=== PATIENT | male | born 1960 | race Caucasian/White ===

== ENCOUNTER → 2016-12-07 | Outpatient (CLI) | payer OTHER | END | disposition home or self-care (01) | LOC: Rad HDHVI 15:06 | PROVIDERS: ATTEND Internal Medicine Cardiovascular Disease | DX: Z01.818 Encounter for other preprocedural examination (principal); R94.31 Abnormal electrocardiogram [ECG] [EKG] | CPT/HCPCS: 93306 ==

== ENCOUNTER → 2016-12-08 | Outpatient (CLI) | payer OTHER ==
[~2016-12-08] VITALS: Ht 172.7 cm; Wt 81.6 kg
== END | disposition home or self-care (01) ==
LOC: Rad HDHVI 07:58
PROVIDERS: ATTEND Internal Medicine Cardiovascular Disease
DX: R94.31 Abnormal electrocardiogram [ECG] [EKG] (principal)
CPT/HCPCS: 78452; 93017; 96374; A9500

== ENCOUNTER 2024-06-06 06:19 | Inpatient (IN) | payer BC ==
[2024-06-03 11:35] LABS: Urine Bacteria None Seen /hpf (None Seen)
[2024-06-03 11:40] LABS: Basophils # (auto) 0.1 10 ^3/uL (0-0.2); Eosinophils # (auto) 0.1 10 ^3/uL (0-0.8); Eosinophils % (auto) 2.2 % (0.0-7.0); Hematocrit 47.5 % (41.0-53.0); Hemoglobin 16.5 g/dL (13.5-17.5); Lymphocytes # (auto) 1.3 10 ^3/uL (0.4-5.4); Lymphocytes % (auto) 24.2 % (10.0-50.0); Mean Corpuscular Hemoglobin 29.4 pg (28.0-32.0); Mean Corpuscular Hgb Conc. 34.7 g/dL (32.0-36.0); Mean Corpuscular Volume 84.8 fL (80.0-100.0); Monocytes # (auto) 0.4 10 ^3/uL (0-1.3); Monocytes % (auto) 7.6 % (0.0-12.0); Neutrophils # (auto) 3.5 10 ^3/uL (1.6-8.6); Nucleated Red Blood Cells % 0.5 %; Platelet Count (auto) 190 10^3/uL (140-450); Red Cell Distribution Width 13.2 % (11.8-14.3); White Blood Cell 5.4 10^3/uL (4.4-10.8)
[2024-06-03 11:51] LABS: Urine Blood Negative /uL (Negative); Urine Clarity Clear (Clear); Urine Color Yellow (Yellow); Urine Hyaline Cast FEW /lpf (0 - 2); Urine Mucus FEW (None Seen); Urine Protein, UAD Negative (Negative); Urine Specific Gravity 1.022 (1.001-1.035); Urine Urobilinogen Normal (Negative); Urine WBC <1 /hpf (0 - 3); Urine pH 5.5 (5.0-9.0)
[2024-06-03 11:59] LABS: INR 1.03 (0.9-1.15); Partial Thromboplastin Time 25.1 SEC (24.5-34.5); Prothrombin Time 10.9 sec (9.3-11.8)
[2024-06-03 12:06] LABS: Alanine Aminotransferase 30 U/L (7-40); Albumin 4.6 g/dL (3.2-4.8); Alkaline Phosphatase 76 U/L (46-116); Anion Gap 9 (5-15); Aspartate Aminotransferase 23 U/L (13-40); Bilirubin, Total 0.8 mg/dL (0.2-1.0); Blood Urea Nitrogen 16 mg/dL (9-23); Calcium 10.2 mg/dL (8.7-10.4); Carbon Dioxide 26 mmol/L (20-31); Glucose 94 mg/dL (74-106); Potassium 4.3 mmol/L (3.5-5.1); Sodium 143 mmol/L (136-145); Total Protein 7.1 g/dL (5.7-8.2)
[2024-06-03 12:12] LABS: Chloride 108 mmol/L (98-107)
[~2024-06-06] VITALS: Ht 172.7 cm; Wt 84.6 kg
[~2024-06-06 06:19] MED LIST: ASPI1TAB20 PO; ATOR20TA PO; LEVO100T69 PO; SERT100T PO; SUMA50TA2 PO
[2024-06-06] MEDS: CIPROFLOXACIN 400MG/200ML 200 ML IV ONE (06:31)
[2024-06-06] MEDS: LIDOCAINE W/ EPINEPHRINE 1% 20ML VIAL ONE ×2 (06:33)
[2024-06-06] MEDS: TRANEXAMIC ACID 20 ML ONE (06:33)
[2024-06-06] MEDS: ceFAZolin 2 GM/D5W100ml 100 ML IV ONE (07:14)
[2024-06-06] MEDS ORDERED: fentaNYL CITRATE 100 MCG/2 ML VL ONE (07:16)
[2024-06-06] MEDS ORDERED: HYDROmorphone HCL 2 MG/ML VL/or syr ONE (07:16)
[2024-06-06] MEDS ORDERED: PROPOFOL 10 MG/ML 20 ML IV ONE (07:17)
[2024-06-06] MEDS ORDERED: MIDAZOLAM HCL 2MG/2ML 2ml VIAL (1mg/ml) ONE ×2 (07:17)
[2024-06-06] MEDS ORDERED: LIDOCAINE 1% INJ PF 5ML AMP ONE (07:24)
--- NOTE | 2024-06-06 08:16 | DVHHP2 ---
History Allergies: Coded Allergies: NO KNOWN ALLERGIES (Unverified , 12/08/16) Chief Complaint: Neck and shoulder pain Present Illness(Onset/Duration Neck and weak hands none contributory to case Exam Exam General Appearance: None, Normal HEENT: Normal ENT Inspection Neck: Normal Inspection, Other (ROM full) Respiratory: No Accessory Muscle Use Cardiovascular: Normal Peripheral Pulses Gastrointestinal: Other (No complaints) Genitalia: Deferred Pelvic: Deferred Rectal: Rectal Exam not done Extremities: Normal capillary refill Neurologic: Alert, Other (bilateral hand weakness) Cerebellar Function: Normal Plan Additional comments: Patient arrived for elective spine surgery with Dr. Farhan correia today cervical 3-5 anterior cervical diskectomy and fusion. The patient was informed of the risks and benefits of the procedure. These include but are not limited to complications of anesthesia, postoperative infection, incomplete relief of symptoms, recurrence of symptoms, damage to blood vessels, nerves and tendons, deep venous thrombosis, pulmonary embolism and possible need for repeat surgery in the future. The risks/benefits/alternatives of surgery including but not limited to pain, bleeding, infection, damage to surrounding soft tissue structures, need for reoperation or future surgery, persistent pain/disability/deformity, pseudoarthrotsis, bone graft collapse or extrusion of interbody device, instrumentation failure, need for instrumentation removal, dural tear, temporary or permanent nerve root damage, paralysis, stroke, deep vein thrombosis, pulmonary embolism, and any associated anesthetic risk (dry mouth, sore throat, dental damage, myocardial infarction, respiratory depression, blindness) were described to the patient in detail and the patient wishes to proceed. No guarantee of surgical outcome/improvement was implied. All of the questions were answered thoroughly and consents were obtained. We will obtain all the necessary preop tests in order for the patient to be cleared medically. Call with questions Barbara Groves [facility] Orthopaedic Spine Surgery nurse practitioner For Dr Cecily Ivy - for staff use only Patient was examined, chart reviewed, labs evaluated, and diagnostic studies and findings analyzed. Case was discussed with Dr. Farhan Ivy who formulated the plan of care. This medical document was created using an electronic medical record system with [employer] dictation system. Although this document has been carefully reviewed, there might still be some phonetic and typographical errors. These areas are purely typographical due to imperfections of the software programs, and do not reflect any compromise in the patient's medical care. SERENE GROVES NP Jun 06, 2024 08:16
[2024-06-06] MEDS ORDERED: fentaNYL CITRATE 100 MCG/2 ML VL IV PRN (09:30)
[2024-06-06] MEDS ORDERED: MORPHINE SULFATE 4 MG/ML SYR/VIAL IV PRN (09:30)
[2024-06-06] MEDS ORDERED: ePHEDrine SULFATE 50 MG/ML AMP IV PRN (09:30)
[2024-06-06] MEDS ORDERED: HYDROmorphone HCL 2 MG/ML VL/or syr IV PRN (09:30)
[2024-06-06] MEDS ORDERED: MIDAZOLAM HCL 2MG/2ML 2ml VIAL (1mg/ml) IV PRN (09:30)
[2024-06-06] MEDS ORDERED: hydrALAZINE HCL 20 MG/ML VL IV PRN (09:30)
[2024-06-06] MEDS ORDERED: SUGAMMADEX 200mg/2ml Vial (100MG/ML) IV ONE (11:16)
--- NOTE | 2024-06-06 11:17 | DVHOP2 ---
Operative Report - 2 Report Details Date: 06/06/24 Preop Diagnosis: cervical spinal stenosis Postop Diagnosis: 1. hard mass continuous with thyroid cartilage with an extension of the mass laterally about 3mm to the left side stratich to extend to the medial border of the left sternocleidomastoid muscle Surgeon: Farhan Ivy MD Mill Tender Warm Up: Verito Groves NP Anesthesiologist: Jerad Jones MD Anesthesia: General Consent: The patient was informed of the risks and benefits of the procedure. These include but are not limited to complications of anesthesia, postoperative infection, incomplete relief of symptoms, recurrence of symptoms, damage to blood vessels, nerves and tendons, deep venous thrombosis, pulmonary embolism and possible need for repeat surgery in the future. Name of Procedure Performed see detailed note Procedure Details Procedure Details: Operative Dictation: Pre op diagnosis: 1. cervical spinal stenosis Postop diagnosis 1. Hard Massextending from the thyroid cartilage laterlly to the left deep to the sternocleidomastoid laterally to the medial border of the let sternocleidomastoid Surgeon: Biju Assist: Allyssa Groves NP Smooth: gen fluids: see anes. note EBL: less than 25 cc Procedure note: The patient was seen in the Pre-anesthesia Care Unit and the site of the incision was initialed by me with a felt tipped marker. All questions by the patient were answered to the satisfaction of the patient and the chart was reviewed. The patient was taken to the operating room and placed supine on the [facility] Flat top table. General anesthesia was induced. Neuromonitoring leads were placed. A rolled towel was placed between the shoulder blades to hyperextend out the chest which will allow better exposure of the cervical sp ine. Halter traction to 10 pounds was placed. The arms were padded and adducted to the patient's side making sure all pulses in the hands were present. Tape traction was undertaken on the shoulders to give us better radiographic exposure of the distal cervical spine. A gel-pad was placed under the occiput and 5 degrees of extension was placed on the neck without adverse effects to the patient. The anterior neck was prepped and draped. Pre-operative antibiotics were given 30 minutes prior to the start of the procedure. A c-arm fluoroscope was used to александр out the incision site. At this time, a time out was taken per usual protocol. 15 blade incision made transversely from the midline to the left side to the lateral border of the sternocleidomastoid muscle through the skin to the platysma muscle. Metzenbaum scissors used to incise the platysma muscle longitudinally along the anterior border of the sternocleidomastoid muscle 3 cm distally and proximal until the deep cervical fascia was seen. blunt dissection of the deep cervical fascia brought immediate attention when I was using finger palpation to a sharp hard mass which I normally encounter because it feels lie a bone spur. However, it was very superficial and starting medially fro the location that one would normally see the thyroid cartilage. further digital palpation confirmed that the hard "exostosis" was continuous with the thyroid cartilage. Recent MRI cervical spine was open and reviewed prior to the case and once again when the hard lesion was encountered and there was no mention made of this mass. On C arm films, when we were checking position, the mass was radiolucent. this ruled out the mass being of bony origin. He has had a prior thyroid surgery and the expectation knowing this information is that this is a continuation of the issue that he had thyroid surgery for. The correct decision at this point is to stop the case and close the incision Copious irrigation with Irisept and then a 10 hungarian round wally drain and then 2-0 vicryl for the SQ closure and nicole for the skin and sterile dressing the patient was extubated without trouble. The patient will be admitted to hospital and I will confer the the radiology staff as to the correct imaging study that would be needed to make a diagnosis. Once the diagnostic tests ordered and completed, , I will plan to d/c home and f/u with ENT surgeon for definitive diagnosis and management. Condition Stable Disposition Still a Patient FARHAN IVY MD Jun 06, 2024 11:17
[2024-06-06 11:45] VITALS: PULSE 84; RESP 12; O2SAT 98
--- NOTE | 2024-06-06 12:07 | DVH ---
C-ARM FLUOROSCOPY: PROCEDURE: Cervical fusion Findings/ IMPRESSION: Please refer to surgical report for detailed findings.
--- NOTE | 2024-06-06 12:07 | DVH ---
C-ARM FLUOROSCOPY: PROCEDURE: Cervical fusion Findings/ IMPRESSION: Please refer to surgical report for detailed findings.
[2024-06-06] MEDS ORDERED: NITROGLYCERIN 0.4 MG SL TAB SL PRN ×2 (12:30→14:00)
[2024-06-06] MEDS ORDERED: MORPHINE SULFATE INJ 2 MG/ml SYRG IV PRN ×3 (12:30→14:00)
--- NOTE | 2024-06-06 12:58 | DVH ---
CT NECK WITHOUT CONTRAST Clinical History: hard mass L ant. neck continuous with thyroid cartilage Comparison: None Technique: Multiple contiguous CT images of the neck were obtained without intravenous contrast. The se images were reformatted degenerate coronal and sagittal reconstructions. Radiation Dose Information: CT Dose: CTDI volume is 25.1 mGy. Dose-length product is 708.36 mGy*cm Findings: Evaluation of the soft tissues of the neck is limited without intravenous contrast. There is a left neck drainage catheter with an anterior approach with the catheter tip in the left ne ck soft tissues at the level of the glottis adjacent to the posterior left thyroid cartilage. There i s soft tissue emphysema seen in the left neck. There is no discrete fluid collection identified. There is no evidence of a soft tissue neck mass or pathologically enlarged cervical lymph nodes. The re is a clip in the right neck just lateral to the right thyroid cartilage. The salivary and thyroid glands appear within normal limits. The aerodigestive tract grossly appears unremarkable. The glottis appears fairly symmetric. The visualized intracranial and intraorbital contents appear within normal limits. The visualized pa ranasal sinuses and mastoid air cells are also clear. There is posterior pleural thickening and mild scarring in the visualized lung apices. The osseous structures appear within normal limits. Impression: 1. There is a left neck drainage catheter with the tip in the left neck soft tissues just posterior t o the left thyroid cartilage. There is no discrete fluid collection identified. There is soft tissue emphysema seen in the left neck. 2. There is no evidence of a soft tissue neck mass or pathologically enlarged cervical lymph nodes. HS:Y
[2024-06-06] MEDS ORDERED: ONDANSETRON HCL 4 MG/2 ML VIAL IV PRN (14:00)
[2024-06-06] MEDS ORDERED: ACETAMINOPHEN 325 MG TAB PO PRN (14:00)
[2024-06-06 14:49] VITALS: BP 147/85; PULSE 95; RESP 19; TEMP 97.5; O2SAT 91
--- NOTE | 2024-06-06 15:31 | DVHINCON2 ---
Date Seen: Jun 06, [address] Ivy Family History: Cardiovascular disease G8 FATHER FH: kidney cancer G8 MOTHER Allergies: Coded Allergies: NO KNOWN ALLERGIES (Unverified , 12/08/16) Home Meds Reported Medications Sumatriptan Succinate (Imitrex) 50 Mg Tab, 50 MG PO, TAB 05/31/24 Aspirin (Aspir-81) 81 Mg Tab, 81 MG PO DAILY, TAB 05/31/24 Atorvastatin Calcium (Lipitor) 20 Mg Tab, 20 MG PO DAILY, TAB 05/31/24 Levothyroxine Sodium (Levoxyl) 100 Mcg Tab, 100 MCG PO DAILY, TAB 05/31/24 Sertraline Hcl (Zoloft) 100 Mg Tab, 100 MG PO QAM, TAB 05/31/24 Current Medications Current Medications Medications (Trade) Dose Ordered Sig/Severiano Route PRN Reason Start Time Stop Time Status Last Admin Hydralazine HCl (Apresoline Injection) 5 mg Q10M PRN IV SBP>160 06/06/24 09:30 06/06/24 10:21 DC Morphine Sulfate 2 mg Q2HPRN PRN IV BREAKTHROUGH PAIN (7-10) 06/06/24 09:30 06/06/24 09:31 DC Midazolam HCl (Versed Injection) 1 mg Q10M PRN IV ANXIETY 06/06/24 09:30 06/06/24 10:11 DC Ephedrine Sulfate (ePHEDrine SULFATE) 10 mg Q10M PRN IV SBP LESS THAN 90 06/06/24 09:30 06/06/24 10:11 DC Fentanyl Citrate 25 mcg Q1HP PRN IV BREAKTHROUGH PAIN (7-10) 06/06/24 09:30 06/06/24 09:31 DC Hydromorphone HCl (Dilaudid Injection) 0.5 mg Q10M PRN IV SEVERE PAIN (7-10 PAIN SCALE) 06/06/24 09:30 06/06/24 10:11 DC Nitroglycerin (Ntrostat Sublingual) 0.4 mg Q5MINP PRN SL FOR CHEST PAIN 06/06/24 12:30 06/06/24 14:05 DC Morphine Sulfate 2 mg Q30M PRN IV FOR CHEST PAIN 06/06/24 12:30 06/06/24 14:05 DC Dextrose/Sodium Chloride 1,000 ml @ 100 mls/hr Q10H IV 06/06/24 14:00 Ondansetron HCl (Zofran) 4 mg Q4HP PRN IV NAUSEA / VOMITING 06/06/24 14:00 Acetaminophen (Tylenol Tablet) 650 mg Q6HP PRN PO MILD PAIN (1-3 PAIN SCALE) 06/06/24 14:00 Acetaminophen/ Hydrocodone Bitart (Barker 10/325MG Tab) 1 tab Q6HP PRN PO MODERATE PAIN (4-6 PAIN SCALE) 06/06/24 14:00 Morphine Sulfate 1 mg Q4HP PRN IV SEVERE PAIN (7-10 PAIN SCALE) 06/06/24 14:00 Cyclobenzaprine HCl (Flexeril Tablet) 10 mg TID PO 06/06/24 14:00 Docusate Sodium (Colace Capsule) 100 mg BID PO 06/06/24 22:00 Cefazolin Sodium 50 ml @ 100 mls/hr Q8HR IV 06/06/24 14:00 06/08/24 06:29 Nitroglycerin (Ntrostat Sublingual) 0.4 mg Q5MINP PRN SL FOR CHEST PAIN 06/06/24 14:00 Morphine Sulfate 2 mg Q30M PRN IV FOR CHEST PAIN 06/06/24 14:00 Vital Signs Vital Signs Date Time Temp Pulse Resp B/P (MAP) Pulse Ox O2 Delivery O2 Flow Rate FiO2 06/06/24 14:49 97.5 95 19 147/85 (105) 91 97.5 06/06/24 14:49 Room Air* 0 21 Labs/Diagnostic Data Labs Test 06/03/24 11:30 Range/Units White Blood Count 5.4 4.4-10.8 10^3/uL Red Blood Count 5.60 4.5-5.90 10^6/uL Hemoglobin 16.5 13.5-17.5 g/dL Hematocrit 47.5 41.0-53.0 % Mean Corpuscular Volume 84.8 80.0-100.0 fL Mean Corpuscular Hemoglobin 29.4 28.0-32.0 pg Mean Corpuscular Hemoglobin Concent 34.7 32.0-36.0 g/dL Red Cell Distribution Width 13.2 11.8-14.3 % Platelet Count 190 140-450 10^3/uL Mean Platelet Volume 7.7 6.9-10.8 fL Neutrophils (%) (Auto) 65.0 37.0-80.0 % Lymphocytes (%) (Auto) 24.2 10.0-50.0 % Monocytes (%) (Auto) 7.6 0.0-12.0 % Eosinophils (%) (Auto) 2.2 0.0-7.0 % Basophils (%) (Auto) 1.0 0.0-2.0 % Neutrophils # (Auto) 3.5 1.6-8.6 10 ^3/uL Lymphocytes # (Auto) 1.3 0.4-5.4 10 ^3/uL Monocytes # (Auto) 0.4 0-1.3 10 ^3/uL Eosinophils # (Auto) 0.1 0-0.8 10 ^3/uL Basophils # (Auto) 0.1 0-0.2 10 ^3/uL Nucleated Red Blood Cells 0.5 % Prothrombin Time 10.9 9.3-11.8 sec Prothrombin Time INR 1.03 0.9-1.15 Activated Partial Thromboplast Time 25.1 24.5-34.5 SEC Urine Color Yellow Yellow Urine Clarity Clear Clear Urine pH 5.5 5.0-9.0 Urine Specific [place] 1.022 1.001-1.035 Urine Protein Negative Negative Urine Ketones Negative Negative Urine Blood Negative Negative /uL Urine Nitrite Negative Negative Urine Bilirubin Negative Negative Urine Urobilinogen Normal Negative mg/dL Urine Leukocyte Esterase Negative Negative /uL Urine RBC 1 0 - 3 /hpf Urine WBC <1 0 - 3 /hpf Urine Squamous Epithelial Cells None seen <5 /hpf Urine Bacteria None seen None Seen /hpf Urine Hyaline Casts Few 0 - 2 /lpf Urine Mucus Few None Seen Urine Glucose Normal Normal mg/dL Sodium Level 143 136-145 mmol/L Potassium Level 4.3 3.5-5.1 mmol/L Chloride Level 108 H 98-107 mmol/L Carbon Dioxide Level 26 20-31 mmol/L Anion Gap 9 5-15 Blood Urea Nitrogen 16 9-23 mg/dL Creatinine 1.33 H 0.700-1.30 mg/dL Glomerular Filtration Rate Calc 60 >90 mL/min BUN/Creatinine Ratio 12.0 10.0-20.0 Serum Glucose 94 74-106 mg/dL Calcium Level 10.2 8.7-10.4 mg/dL Total Bilirubin 0.8 0.2-1.0 mg/dL Aspartate Amino Transferase (AST) 23 13-40 U/L Alanine Aminotransferase (ALT) 30 7-40 U/L Alkaline Phosphatase 76 46-116 U/L Total Protein 7.1 5.7-8.2 g/dL Albumin 4.6 3.2-4.8 g/dL Assessment see dictated note Plan discussed with: Patient Date of Service: Jun 06, 2024 Billing Provider: KASSIDY TURK MD Common Visit Codes: [id number] INP/OBS CARE (HIGH) KASSIDY TURK MD Jun 06, 2024 15:31
[2024-06-06] MEDS: ceFAZolin 1GM/50ML 50 ML IV SCH (16:15)
[2024-06-06] MEDS: CYCLOBENZAPRINE HCL 10 MG TAB PO SCH (16:15)
[2024-06-06] MEDS: D5W/SOD CHLO 0.9% 1,000 ML IV SCH (16:16)
[2024-06-06 17:06] VITALS: BP 159/96; PULSE 88; RESP 20; TEMP 97.5; O2SAT 93
--- NOTE | 2024-06-06 17:18 | DVHINCON2 ---
DATE OF CONSULTATION: 06/06/2024 INTERNAL MEDICINE CONSULT HISTORY OF PRESENT ILLNESS: The patient is a 63-year-old gentleman who was admitted to undergo cervical spine surgery for cervical spinal stenosis, but during the surgery was found to have a hard mass continuous with the thyroid cartilage and the surgery was abandoned. The patient at this time denies any significant pain. No chest pain, no shortness of breath. No nausea or vomiting. REVIEW OF SYSTEMS: Review of rest of systems are otherwise currently negative. PAST MEDICAL HISTORY: Significant for hypothyroidism, hypertension, depression, and hyperlipidemia. MEDICATIONS: Include levothyroxine, Zoloft, Lipitor, and Imitrex. ALLERGIES: No known drug allergies. SOCIAL HISTORY: Lives at home with his . Denies smoking or alcohol. FAMILY HISTORY: Negative. PHYSICAL EXAMINATION: GENERAL: The patient is awake, alert. VITAL SIGNS: Temperature of 97.5, pulse 95 per minute, blood pressure 147/85. SHEENT: Unremarkable. NECK: There is no JVD. No pedal edema. Does have a dressing in the left neck with a drain in place. LUNGS: Equal bilaterally. No added sounds. CARDIOVASCULAR: S1, S2 is regular, no murmurs. ABDOMEN: Soft. There is no organomegaly. NEUROLOGIC: Nonfocal. MUSCULOSKELETAL: Normal. ASSESSMENT AND PLAN: * Hypothyroidism. A TSH will be checked. * Questionable hypertension for which blood pressure will be monitored. * Hyperlipidemia. * Depression. * Status post neck surgery for which she will be placed on pain medications and antibiotics. MD CHRIS Sam/SAMANTHA TID: [id number] RECEIPT: [id number]
[2024-06-06] MEDS: ONDANSETRON HCL 4 MG/2 ML VIAL IV ONE (18:57)
[2024-06-06 20:00] VITALS: RESP 18; O2SAT 98
[2024-06-06] MEDS: ATORVASTATIN 20 MG TAB PO SCH (20:57)
[2024-06-06] MEDS: DOCUSATE SOD 100 MG CAP PO SCH (20:57)
[2024-06-06] MEDS: HYDROcodone-ACET 10/325MG TAB PO PRN (20:58)
[2024-06-06 21:32] VITALS: BP 138/92; PULSE 92; RESP 18; TEMP 98.5; O2SAT 98
[2024-06-07] VITALS (7 sets, daily range): BP systolic 120–141; BP diastolic 75–95; PULSE 84–96; RESP 18–20; TEMP 97.6–99.2; O2SAT 90–100
[2024-06-07] MEDS: LEVOTHYROXINE SODIUM 100 MCG TAB PO SCH (05:35)
[2024-06-07 07:18] LABS: Basophils # (auto) 0 10 ^3/uL (0-0.2); Eosinophils # (auto) 0 10 ^3/uL (0-0.8); Hematocrit 41.2 % (41.0-53.0); Hemoglobin 14.2 g/dL (13.5-17.5); Mean Corpuscular Hemoglobin 29.3 pg (28.0-32.0); Mean Corpuscular Hgb Conc. 34.5 g/dL (32.0-36.0); Mean Corpuscular Volume 84.7 fL (80.0-100.0); Monocytes # (auto) 0.9 10 ^3/uL (0-1.3); Monocytes % (auto) 8.2 % (0.0-12.0); Neutrophils # (auto) 9.2 10 ^3/uL (1.6-8.6); Neutrophils % (auto) 82.8 % (37.0-80.0); Platelet Count (auto) 191 10^3/uL (140-450); Red Blood Cells 4.86 10^6/uL (4.5-5.90); Red Cell Distribution Width 13.1 % (11.8-14.3); White Blood Cell 11.1 10^3/uL (4.4-10.8)
[2024-06-07 07:24] LABS: Potassium 4.2 mmol/L (3.5-5.1); Sodium 142 mmol/L (136-145)
[2024-06-07 07:25] LABS: Anion Gap 6 (5-15); Calcium 9.1 mg/dL (8.7-10.4); Carbon Dioxide 27 mmol/L (20-31)
[2024-06-07 07:28] LABS: Chloride 109 mmol/L (98-107)
[2024-06-07 07:30] LABS: BUN/Creatinine Ratio 13.1 (10.0-20.0); Blood Urea Nitrogen 16 mg/dL (9-23)
[2024-06-07 07:32] LABS: Glucose 115 mg/dL (74-106)
[2024-06-07] MEDS: SERTRALINE HCL 50 MG TAB PO SCH (08:54)
[2024-06-08 00:57] VITALS: BP 144/83; PULSE 88; RESP 16; TEMP 98.5; O2SAT 96
[2024-06-08 04:52] VITALS: BP 170/94; PULSE 91; RESP 16; TEMP 98.7; O2SAT 95
[2024-06-08 09:00] VITALS: BP 158/109; PULSE 83; RESP 17; TEMP 98.4; O2SAT 97
--- NOTE | 2024-06-08 10:52 | DVHDS2 ---
Discharge Summary Date of Admission Jun 06, 2024 at 12:16 Date of Discharge: Jun 08, 2024 Labs/Diagnostic Data: Laboratory Results Test 06/07/24 06:25 06/03/24 11:30 White Blood Count 11.1 10^3/uL (4.4-10.8) Red Blood Count 4.86 10^6/uL (4.5-5.90) Hemoglobin 14.2 g/dL (13.5-17.5) Hematocrit 41.2 % (41.0-53.0) Mean Corpuscular Volume 84.7 fL (80.0-100.0) Mean Corpuscular Hemoglobin 29.3 pg (28.0-32.0) Mean Corpuscular Hemoglobin Concent 34.5 g/dL (32.0-36.0) Red Cell Distribution Width 13.1 % (11.8-14.3) Platelet Count 191 10^3/uL (140-450) Mean Platelet Volume 8.2 fL (6.9-10.8) Neutrophils (%) (Auto) 82.8 % (37.0-80.0) Lymphocytes (%) (Auto) 9.0 % (10.0-50.0) Monocytes (%) (Auto) 8.2 % (0.0-12.0) Eosinophils (%) (Auto) 0.0 % (0.0-7.0) Basophils (%) (Auto) 0.0 % (0.0-2.0) Neutrophils # (Auto) 9.2 10 ^3/uL (1.6-8.6) Lymphocytes # (Auto) 1.0 10 ^3/uL (0.4-5.4) Monocytes # (Auto) 0.9 10 ^3/uL (0-1.3) Eosinophils # (Auto) 0 10 ^3/uL (0-0.8) Basophils # (Auto) 0 10 ^3/uL (0-0.2) Nucleated Red Blood Cells 0.0 % Sodium Level 142 mmol/L (136-145) Potassium Level 4.2 mmol/L (3.5-5.1) Chloride Level 109 mmol/L (98-107) Carbon Dioxide Level 27 mmol/L (20-31) Anion Gap 6 (5-15) Blood Urea Nitrogen 16 mg/dL (9-23) Creatinine 1.22 mg/dL (0.700-1.30) Glomerular Filtration Rate Calc 66 mL/min (>90) BUN/Creatinine Ratio 13.1 (10.0-20.0) Serum Glucose 115 mg/dL (74-106) Calcium Level 9.1 mg/dL (8.7-10.4) Thyroid Stimulating Hormone (TSH) 1.20 uIU/mL (0.55-4.78) Prothrombin Time 10.9 sec (9.3-11.8) Prothrombin Time INR 1.03 (0.9-1.15) Activated Partial Thromboplast Time 25.1 SEC (24.5-34.5) Urine Color Yellow (Yellow) Urine Clarity Clear (Clear) Urine pH 5.5 (5.0-9.0) Urine Specific [place] 1.022 (1.001-1.035) Urine Protein Negative (Negative) Urine Ketones Negative (Negative) Urine Blood Negative /uL (Negative) Urine Nitrite Negative (Negative) Urine Bilirubin Negative (Negative) Urine Urobilinogen Normal mg/dL (Negative) Urine Leukocyte Esterase Negative /uL (Negative) Urine RBC 1 /hpf (0 - 3) Urine WBC <1 /hpf (0 - 3) Urine Squamous Epithelial Cells None seen /hpf (<5) Urine Bacteria None seen /hpf (None Seen) Urine Hyaline Casts Few /lpf (0 - 2) Urine Mucus Few (None Seen) Urine Glucose Normal mg/dL (Normal) Total Bilirubin 0.8 mg/dL (0.2-1.0) Aspartate Amino Transferase (AST) 23 U/L (13-40) Alanine Aminotransferase (ALT) 30 U/L (7-40) Alkaline Phosphatase 76 U/L (46-116) Total Protein 7.1 g/dL (5.7-8.2) Albumin 4.6 g/dL (3.2-4.8) Other Laboratory Tests 06/07/24 06:25 Brief Hx & Hospital Course: pt. admitted after surgery to get CT of the neck and medical monitoring. Once stable, plans made to d/c home Operations or Procedures see detailed note Condition at Discharge: Good Final Diagnosis/Problems List 1. hard mass continuous with thyroid cartilage with an extension of themass laterally about 3mm to the left side stratich to extend to themedial border of the left sternocleidomastoid muscle Discharge Disposition: Home Discharge Instruct/Medications Diet: Regular Activity: No Restrictions, As Tolerated Follow Up/Referral: dr. cheney in 2 weeks Medications: sent through office emr Discharge Statement: "Patient was advised to return to the ER or call 911 if any headaches, dizziness, shortness of breath, chest pain, abdominal pain, bleeding, fevers, or worsening of medical condition. Patient was counseled about treatment plan, medications, possible side effects, patientverbalized understanding. All questions were answered to the best of my ability. This discharge took greater then 30 minutes in planning, reviewing documentation, counseling the patient, and discussing with other team members." ASSESSMENT ASSESSMENT Assessment 1. hard mass continuous with thyroid cartilage with an extension of themass laterally about 3mm to the left side stratich to extend to themedial border of the left sternocleidomastoid muscle ANGELO CHENEY MD Jun 08, 2024 10:52
[2024-06-08 11:11] VITALS: BP 158/109; PULSE 83; RESP 17; TEMP 98.4; O2SAT 97
[2024-06-08] MEDS: hydrALAZINE HCL 20 MG/ML VL IV PRN (12:28)
[2024-06-08 13:00] VITALS: BP 164/105; PULSE 95; RESP 18; TEMP 98.2; O2SAT 97
== END 2024-06-08 13:54 | disposition home or self-care (01) | DRG 502 ==
LOC: SUR 06:19 → OVERFLOW 12:16 → WEST WING 14:18
PROVIDERS: ADMIT Orthopaedic Surgery; ATTEND Internal Medicine
PROC: 0KJX0ZZ Inspection of Upper Muscle, Open Approach (ICD-10-PCS; principal; 2024-06-06 08:41)
DX: M48.02 Spinal stenosis, cervical region (principal); E03.9 Hypothyroidism, unspecified; E78.5 Hyperlipidemia, unspecified; F32.A Depression, unspecified; I10 Essential (primary) hypertension; Z82.49 Family history of ischemic heart disease and other diseases of the circulatory system; Z80.51 Family history of malignant neoplasm of kidney
CPT/HCPCS: 36415; 70490; 72040; 76000; 80048; 80053; 81001; 84443; 85025; 85610; 85730; 86850; 86900; 86901; 87086; 97163; G0378; J2250; J2405; J2704; J7042

== ENCOUNTER 2024-12-31 06:15 | Inpatient (IN) | payer OTHER, BC ==
[2024-12-30 10:11] LABS: Hematocrit 47.0 % (41.0-53.0); Hemoglobin 16.7 g/dL (13.5-17.5); Mean Corpuscular Hemoglobin 29.6 pg (28.0-32.0); Mean Corpuscular Volume 83.3 fL (80.0-100.0); Nucleated Red Blood Cells % 0.3 %
[2024-12-30 10:23] LABS: INR 0.97 (0.9-1.15); Partial Thromboplastin Time 25.6 SEC (24.5-34.5); Prothrombin Time 10.3 sec (9.3-11.8)
[2024-12-30 10:27] LABS: Alanine Aminotransferase 36 U/L (7-40); Albumin 4.8 g/dL (3.2-4.8); Alkaline Phosphatase 64 U/L (46-116); Anion Gap 8 (5-15); BUN/Creatinine Ratio 13.6 (10.0-20.0); Blood Urea Nitrogen 18 mg/dL (9-23); Calcium 10.1 mg/dL (8.7-10.4); Carbon Dioxide 26 mmol/L (20-31); Glucose 89 mg/dL (74-106); Potassium 4.2 mmol/L (3.5-5.1); Sodium 142 mmol/L (136-145); Total Protein 7.2 g/dL (5.7-8.2)
[2024-12-30 10:28] LABS: Bilirubin, Total 0.8 mg/dL (0.2-1.0)
[2024-12-30 10:33] LABS: Chloride 108 mmol/L (98-107)
[2024-12-30 10:42] LABS: Urine Protein, UAD Negative (Negative)
[2024-12-31] VITALS (9 sets, daily range): BP systolic 145–170; BP diastolic 90–100; PULSE 58–93; RESP 11–17; TEMP 97.9–98.6; O2SAT 94–98
[~2024-12-31] VITALS: Ht 172.7 cm; Wt 83.0 kg
[~2024-12-31 06:15] MED LIST changes: +ASCO500T11 PO; -ATOR20TA PO; +CHOL25CH3 PO; +CYAN1TAB14 PO; +ECHI1CAP PO; +NIFE1TAB31 PO; -SERT100T PO
[2024-12-31] MEDS: ceFAZolin 2 GM/D5W50ml 50 ML IV ONE (06:23)
[2024-12-31] MEDS: TRANEXAMIC ACID 20 ML ONE (06:35)
[2024-12-31] MEDS ORDERED: fentaNYL CITRATE 5 ML ONE (07:35)
[2024-12-31] MEDS ORDERED: fentaNYL CITRATE 100 MCG/2 ML VL ONE (07:35)
[2024-12-31] MEDS ORDERED: KETAMINE 50mg/ML 1ml syringe ONE (07:35)
[2024-12-31] MEDS ORDERED: HYDROmorphone HCL 2 MG/ML VL/or syr ONE (07:35)
[2024-12-31] MEDS ORDERED: MIDAZOLAM HCL 2MG/2ML 2ml VIAL (1mg/ml) ONE (07:35)
--- NOTE | 2024-12-31 07:35 | DVHHP2 ---
History Allergies: Coded Allergies: NO KNOWN ALLERGIES (Unverified , 12/08/16) Chief Complaint: Cervical stenosis, patient is here for elective spine surgery with Dr Farhan Ivy cervical three through five anterior cervical diskectomy and fusion. Patient has been experiencing classic cervical his symptoms and also difficulty with ambulation due to initial instability upon standing, patient's left upper and lower extremities are effective were then his right. 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 Left Hand numbness is also frequently experienced The risks/benefits/alternatives of surgery were explained to the patient in detail including but not limited to , stroke, paralysis, myocardial infarction, bleeding, infection, complications of anesthesia (dry mouth, sore throat, dental damage, respiratory depression, blindness), postoperative infection, incomplete relief of symptoms, recurrence of symptoms, damage to blood vessels, nerves and tendons, pulmonary embolism and possible need for repeat surgery in the future. Pain, damage to surrounding soft tissue structures, need for reoperation or future surgery, persistent pain/disability/deformity, bone graft collapse or extrusion of interbody device, instrumentation failure, need for instrumentation removal, dural tear, temporary or permanent nerve root damage, deep vein thrombosis, pulmonary embolism, were described to the patient in detail and the patient wishes to proceed. No guarantee of surgical outcome/improvement was implied. All of the questions were answered thoroughly and consents were obtained. Call with questions Barbara Groves [facility] Orthopaedic Spine Surgery nurse practitioner For Dr Cecily Ivy Patient was examined, chart reviewed, labs evaluated, and diagnostic studies and findings analyzed. Case was discussed with Dr. Farhan Ivy who formulated the plan of care. This medical document was created using an electronic medical record system with [employer] dictation system. Although this document has been carefully reviewed, there might still be some phonetic and typographical errors. These areas are purely typographical due to imperfections of the software programs, and do not reflect any compromise in the patient's medical care. Present Illness(Onset/Duration Patient has been having effects of cervical radiculopathies since about 2019, patient did have the same surgery scheduled in May of 2025 however it was aborted due to intraoperative findings. Patient has been cleared for surgery. Noncontributory to this case Past Surgical History: Other (Bilateral shoulder rotator cuff surgery prior neck surgery both anterior and posterior approaches) Exam Exam General Appearance: None, Obese HEENT: Normal ENT Inspection, Other (Speech is clear concise not hoarse) Neck: Full Range of Motion, None, Normal Inspection, Other (Bilateral lateral neck pain shoulder pain bilaterally) Respiratory: No Accessory Muscle Use, None, No Respiratory Distress Cardiovascular: No Edema, No JVD, Other (Skin is pink warm and dry no complaints of chest pain) Gastrointestinal: Other (No complaints of nausea vomiting or diarrhea) Extremities: Normal capillary refill, Normal inspection, Normal range of motion Neurologic: Alert, 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
[2024-12-31] MEDS ORDERED: GLYCOPYRROLATE 0.2 MG/ML 1ML VIAL ONE (07:36)
[2024-12-31] MEDS ORDERED: ROCURONIUM 10MG/ML 10ML VIAL IV ONE (07:36)
[2024-12-31] MEDS ORDERED: HYDROCORTISONE SOD SUCC 100 MG/2ML INJ VIAL ONE (07:36)
[2024-12-31] MEDS ORDERED: ONDANSETRON HCL 4 MG/2 ML VIAL ONE (07:36)
[2024-12-31] MEDS ORDERED: PROPOFOL 10 MG/ML 20 ML IV ONE ×2 (07:36→10:25)
[2024-12-31] MEDS ORDERED: KETOROLAC TROMETH 30 MG/ML 1ML VIAL ONE (07:36)
[2024-12-31] MEDS ORDERED: PHENYLEPHRINE HCL 10 MG/ML VL ONE (07:36)
[2024-12-31] MEDS ORDERED: LIDOCAINE 2%HCL (LOCAL ANESTH.) INJ 20ML MDV ONE (07:36)
--- NOTE | 2024-12-31 07:37 | POSTOP ---
Post-Operative Note Post-Operative Note Preop Diagnosis Cervical stenosis Postop Diagnosis: 1. Cervical Degenerative Disk Disease and Spinal Stenosis Causing incapacitating neck pain, radiculopathy and progressive neurologic deficit Operation performed Procedure: Cervical 3 to 4 anterior cervical discectomy with Cervical 3-4 foraminotomies and facetectomies to decompression the spinal canal and Cervical 4 nerve roots Cervical 4 to 5 anterior cervical discectomy with Cervical 4-5 foraminotomies and facetectomies to decompression the spinal canal and Cervical 5 nerve roots Specimen None Anesthesia: General Anesthesiologist: Dr. 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 morphine 1mg q 4 hours (PAIN 7-10) - P.O. analgesics:Tylenol 650MG (PAIN 1-3) [place] 10/325 mg (PAIN 4-6) - Muscle relaxers scheduled administration. This is a beneficial medications for the incisional pain as it is mostly related to muscle spasms. Flexeril 10 mg TID - Cepacol throat lozenges as needed for sore throat -Antibiotics Operative recommendations: -Postoperative dose:-Post operative antibiotics cefazolin 1 g IV piggyback every 8 hours x 48 hours total of 6 doses -DVT PPX: -Hold all chemical DVT/ blood thinners for 14 days postoperatively -use mechanical DVT PPX such as SCD's, ambulation -Activity: -Pending PT evaluation and patients progression -Sit at side of bed for meals -Goal: Ambulate independently and safely (may use assistive devices if needed) -Medical Therapy goals: -Afebrile- Patient may develop a expected post operative fever by day 2-3, this may not be accompanied with a elevation in WBC. if fever develops: Acetaminophen for fever. Albuterol nebulizer Tx every 12 hours for 24 hours to facilitate adequate lung expansion and prevent development of atelectasis. -Euglycemic: bloods sugars under 130mmol/L for optimal healing -Normotensive: Avoid events of hypertension. This helps to keep post operative healing intact and avoids destabilization of beneficial hemostatic coagulation. Drains -Bulb drains: record output and characteristics of the drainage EVERY 6 HOURS- if there is no output indicate this by documenting 0ml output in note.. These will be to thumbprint compression unless otherwise ordered. Record output as well as amount in a note at least every 6 houtrs- more if indicated. Wound drainage is described by type, color, amount, and odor. Drainage can be 1 serous: Clear and thin, may be present in healing healthy wound. 2 serosanguineous containing blood may also be present and healthy healing wound 3. Sanguinous primarily blood 4. Purulent this is thick, white, and pus like. It may be indicated to give of a infection and should constitute a call to the provider immediately with the plan that the sample should be cultured. -Negrete: -DC in OR -Dressings -Anterior cervical patients: Initial surgical dressing may be reinforced if needed. If there is excessive bleeding, leaking, drainage in the bulb drain notify provider -Bowel management: -Colace 100mg bid -Diet: -Clear liquid diet and advance as patient tolerates within dietary limitations ( example: diabetic, Cardiac) -Incentive Spirometer: -10 x hour while awake, RN please educate and observe repeat demonstration, have IS at bedside POD #1 -X-rays: - none indicated at this time -Consults: -Physical Therapy evaluation, treatment recommendations, and discharge recommendations Call with questions Barbara Ann ACNP- Orthopaedic Spine Surgery nurse practitioner For Dr Cecily Ivy Patient was examined, chart reviewed, labs evaluated, and diagnostic studies and findings analyzed. Case was discussed with Dr. Farhan Ivy who formulated the plan of care. This medical document was created using an electronic medical record system with [employer] system. Although this document has been carefully reviewed, there might still be some phonetic and typographical errors. These areas are purely typographical due to imperfections of the software programs, and do not reflect any compromise in the patient's medical care. Date 12/31/24 Time 07:35 VERITO ANN NP 15, 2025 07:37
[2024-12-31] MEDS ORDERED: SUGAMMADEX 200mg/2ml Vial (100MG/ML) IV ONE (11:43)
[2024-12-31] MEDS: D5W/SOD CHLO 0.9% 1,000 ML IV SCH (12:00)
[2024-12-31] MEDS ORDERED: MORPHINE SULFATE INJ 2 MG/ml SYRG IV PRN (12:00)
[2024-12-31] MEDS ORDERED: NITROGLYCERIN 0.4 MG SL TAB SL PRN (12:00)
--- NOTE | 2024-12-31 12:04 | DVHOP2 ---
Operative Report - 2 Report Details Date: 12/31/24 Preop Diagnosis: cervical spinal stenosis with severe radiculopathy Postop Diagnosis: same as pre op Surgeon: Farhan Ivy MD Machine Quilt Stuffer: Verito Groves NP Anesthesiologist: nicole Anesthesia: General Consent: The patient was informed of the risks and benefits of the procedure. These include but are not limited to complications of anesthesia, postoperative infection, incomplete relief of symptoms, recurrence of symptoms, damage to blood vessels, nerves and tendons, deep venous thrombosis, pulmonary embolism and possible need for repeat surgery in the future. Name of Procedure Performed see detailed note Procedure Details Procedure Details: Pre Op Diagnosis: Cervical Degenerative Disk Disease and Severe Spinal Stenosis Causing incapacitating neck pain, radiculopathy and progressive neurologic deficit Post Op Diagnosis: 1. Cervical Degenerative Disk Disease and Spinal Stenosis Causing incapacitating neck pain, radiculopathy and progressive neurologic deficit Procedure: Cervical 3 to 4 anterior cervical discectomy with Cervical 3-4 foraminotomies and facetectomies to decompression the spinal canal and Cervical 4 nerve roots Cervical 4 to 5 anterior cervical discectomy with Cervical 4-5 foraminotomies and facetectomies to decompression the spinal canal and Cervical 5 nerve roots Cervical 3-5 anterior cervical Fusion Cervical 3-5 anterior cervical instrumentation with freestanding cages Cervical 3-4 placement of allograft prosthetic device Cervical 4-5 placement of allograft prosthetic device Microscope for micro dissection Surgeon: Farhan Ivy MD Anesthesia: General Assist: Verito Groves NP Fluids and EBL: see anesthesia note Procedure Note: The patient was seen in the Pre-anesthesia Care Unit and the site of the incision was initialed by me with a felt tipped marker. All questions by the patient were answered to the satisfaction of the patient and the chart was reviewed. The patient was taken to the operating room and placed supine on the [facility] top table. General anesthesia was induced. Neuromonitoring leads were placed. A rolled towel was placed between the shoulder blades to hyperextend out the chest which will allow better exposure of the cervical spine. Halter traction to 10 pounds was placed. The arms were padded and adducted to the patients side making sure all pulses in the hands were present. Tape traction was undertaken on the shoulders to give us better radiographic exposure of the distal cervical spine. A gel-pad was placed under the occiput and 5 degrees of extension was placed on the neck without adverse effects to the patient. The anterior neck was prepped and draped. Pre-operative antibiotics were given 30 minutes prior to the start of the procedure. A c-arm fluoroscope was used to александр out the incision site. At this time, a time out was taken per usual protocol. The patient had a previous anterior transverse left sded incision in the neck and to avoid some of the scarring, I chose a longitudinal incision on the left side at the anterior border of the sternocleidomastoid muscle from the C3 to C5 level. Next an incision was made through the skin with a 15 blade scalpel through the subcutaneous tissue down to the platysma. Self-retainers were placed. The platysma was incised along the longitudinal border with a Metzenbaum scissors. Blunt dissection was made through the deep cervical and pre-tracheal fascia taking care to protect the carotid sheath laterally and the Trachea/esophagus medially. The dissection was carried down to the prevertebral fascia. Any crossing vessels were ligated using a vascular clip or coagulated with a bovie. An esophageal retractor was next used to retract the trachea/esophagus and a bent [address] through the anterior annulus of the cervical disk and a lateral C-arm fluoroscopic image was taken to confirm that we were at the correct level. Next, bovie electrocautery was used to expose the bones of cervical 3,4,5, and bipolar electrocuatery was used to lift up the Longus colli and capitus muscles. Black-Belt Self Retainers were used to retract the longus colli and capitus muscles bilaterally as well as the trachea/esophagus to the right and the carotid sheath to the left. Smooth thin Black-Belt retractors were placed proximally and distally and a needle was placed again in the anterior annulus of the disk and an image taken to confirm the correct level. At this point, the microscope was wheeled in and an 11 blade scalpel incised the anterior annulus of the cervical 3/4 and 4/5 disks. Next, straight and curved curettes removed the remainder of the disks all the way down to the posterior longitudinal ligament. Carefully, a Augustine number one rongeur incised the posterior longitudinal ligament at the lateral end of the above disks and using a micro, blunt tip nerve hook to separate the posterior longitudinal ligament from the dura, alternating 1 mm and 2 mm Kerison rongeurs removed the posterior longitudinal ligament. Next, Kerison 1mm and 2 mm rongeurs were alternated to get under the uncinate processes and undercut them to perform foraminotomies and factectomies at the cervical 3/4 and 4/5 levels to decompress the central canal and cervical 4,5 nerve roots. Next the microscope was wheeled away and the c-arm fluoroscope was wheeled into the field and a lateral image was obtained. Increasing size graft trials were used starting at a 5 mm thick size until the proper tension in the disk space and height latter day obtained. We then placed final free standing cages at C3/4 and 4/5. Satisfactory placement was confirmed in the AP and lateral views using a C-arm fluoroscope. Copious irrigation of the wound with sterile saline and all bleeding was controlled before closure initiated. At this point, a 10 Macedonian round [address] Drain was place deep to the Platysma muscle and the Platysma was approximated with one interrupted 0-Vicryl suture. The subcutaneous tissue was closed with interrupted 2-0 vicryl sutures and the skin was closed with nicole. Sterile dressings were placed and a cervical collar placed, the patient extubated, transferred to the stretcher and taken to the Recovery Room in unremarkable condition. Other Notes: [id number] Condition Stable Disposition Still a Patient FARHAN IVY MD Dec 31, 2024 12:04
[2024-12-31] MEDS: ACETAMINOPHEN IV 1000 MG/100ML (10MG/ML) IV ONE (12:20)
[2024-12-31] MEDS: ACETAMINOPHEN IV 100 ML IV ONE (12:20)
[2024-12-31] MEDS ORDERED: HYDROmorphone HCL 2 MG/ML VL/or syr IV PRN (12:30)
[2024-12-31] MEDS: ONDANSETRON HCL 4 MG/2 ML VIAL IV ONE (12:30)
[2024-12-31 13:05] LABS: Urine Amorphous Crystal FEW /hpf (None Seen); Urine Protein, UAD TRACE (Negative)
--- NOTE | 2024-12-31 14:52 | DVHINCON2 ---
Date Seen: Dec 31, [address] MIDDLETON Family History: Cardiovascular disease G8 FATHER FH: kidney cancer G8 MOTHER Allergies: Coded Allergies: NO KNOWN ALLERGIES (Unverified , 12/08/16) Home Meds Reported Medications Echinacea Purpurea Aerial (Echinacea) 650 Mg Cap, 650 MG PO DAILY, CAP 12/25/24 Cholecalciferol (D3) 25 Mcg Chw, 25 MCG PO DAILY, TAB.CHEW 12/25/24 Ascorbic Acid (VITAMIN C TABLET) 500 Mg Tb, 1 TAB PO DAILY, #30 TAB 12/25/24 Cyanocobalamin (B12) 1,000 Mcg Tab, 1000 MCG PO DAILY, TAB 12/25/24 Nifedipine (Nifedipine Er) 30 Mg Tab, 1 TAB PO DAILY, #90 TAB 3 Refills 12/25/24 Sumatriptan Succinate (Imitrex) 50 Mg Tab, 50 MG PO, TAB 05/31/24 Aspirin (Aspir-81) 81 Mg Tab, 81 MG PO DAILY, TAB 05/31/24 Levothyroxine Sodium (Levoxyl) 100 Mcg Tab, 100 MCG PO DAILY, TAB 05/31/24 Current Medications Current Medications Medications (Trade) Dose Ordered Sig/Severiano Route PRN Reason Start Time Stop Time Status Last Admin Dextrose/Sodium Chloride 1,000 ml @ 100 mls/hr Q10H IV 12/31/24 12:00 Ondansetron HCl (Zofran) 4 mg Q4HP PRN IV NAUSEA / VOMITING 12/31/24 12:00 Acetaminophen (Tylenol Tablet) 650 mg Q6HP PRN PO MILD PAIN (1-3 PAIN SCALE) 12/31/24 12:00 Acetaminophen/ Hydrocodone Bitart ([employer] 10/325MG Tab) 1 tab Q6HP PRN PO MODERATE PAIN (4-6 PAIN SCALE) 12/31/24 12:00 Morphine Sulfate 1 mg Q4HP PRN IV SEVERE PAIN (7-10 PAIN SCALE) 12/31/24 12:00 Cyclobenzaprine HCl (Flexeril Tablet) 10 mg TID PO 12/31/24 14:00 Docusate Sodium (Colace Capsule) 100 mg BID PO 12/31/24 22:00 Cefazolin Sodium 50 ml @ 100 mls/hr Q8HR IV 12/31/24 14:00 Nitroglycerin (Ntrostat Sublingual) 0.4 mg Q5MINP PRN SL FOR CHEST PAIN 12/31/24 12:00 Morphine Sulfate 2 mg Q30M PRN IV FOR CHEST PAIN 12/31/24 12:00 Ascorbic Acid (Vitamin C Tablet) 500 mg DAILY PO 01/01/25 10:00 Aspirin (Ecotrin Enteric Coated Tablet) 81 mg DAILY PO 01/01/25 10:00 Levothyroxine Sodium (Synthroid Tablet) 100 mcg DAILY PO 01/01/25 10:00 Nifedipine (Procardia Xl (Time-Release)) 30 mg DAILY PO 01/01/25 10:00 Hydromorphone HCl (Dilaudid Injection) 0.5 mg Q10M PRN IV SEVERE PAIN (7-10 PAIN SCALE) 12/31/24 12:30 12/31/24 13:11 DC Vital Signs Vital Signs Date Time Temp Pulse Resp B/P (MAP) Pulse Ox O2 Delivery O2 Flow Rate FiO2 12/31/24 13:33 88 14 122/81 (95) 93 12/31/24 12:12 Mask 9.0 98 12/31/24 12:12 97.0 97.0 Labs/Diagnostic Data Labs Test 12/31/24 12:00 12/30/24 09:45 Range/Units Urine Color Colorless Yellow Urine Clarity Turbid H Clear Urine pH 5.5 5.0-9.0 Urine Specific [place] 1.015 1.001-1.035 Urine Protein Trace H Negative Urine Ketones Negative Negative Urine Blood 3+ H Negative /uL Urine Nitrite Negative Negative Urine Bilirubin Negative Negative Urine Urobilinogen Normal Negative mg/dL Urine Leukocyte Esterase Negative Negative /uL Urine RBC 159 0 - 3 /hpf Urine Microscopic WBC 11 H 0-3 /HPF Urine Squamous Epithelial Cells None seen <5 /hpf Urine Amorphous Crystals Few None Seen /hpf Urine Bacteria Few H None Seen /hpf Urine Hyaline Casts Few 0 - 2 /lpf Urine Glucose Normal Normal mg/dL White Blood Count 4.6 4.4-10.8 10^3/uL Red Blood Count 5.63 4.5-5.90 10^6/uL Hemoglobin 16.7 13.5-17.5 g/dL Hematocrit 47.0 41.0-53.0 % Mean Corpuscular Volume 83.3 80.0-100.0 fL Mean Corpuscular Hemoglobin 29.6 28.0-32.0 pg Mean Corpuscular Hemoglobin Concent 35.5 32.0-36.0 g/dL Red Cell Distribution Width 13.3 11.8-14.3 % Platelet Count 235 140-450 10^3/uL Mean Platelet Volume 8.1 6.9-10.8 fL Neutrophils (%) (Auto) 50.7 37.0-80.0 % Lymphocytes (%) (Auto) 37.3 10.0-50.0 % Monocytes (%) (Auto) 8.4 0.0-12.0 % Eosinophils (%) (Auto) 2.4 0.0-7.0 % Basophils (%) (Auto) 1.2 0.0-2.0 % Neutrophils # (Auto) 2.3 1.6-8.6 10 ^3/uL Lymphocytes # (Auto) 1.7 0.4-5.4 10 ^3/uL Monocytes # (Auto) 0.4 0-1.3 10 ^3/uL Eosinophils # (Auto) 0.1 0-0.8 10 ^3/uL Basophils # (Auto) 0.1 0-0.2 10 ^3/uL Nucleated Red Blood Cells 0.3 % Prothrombin Time 10.3 9.3-11.8 sec Prothrombin Time INR 0.97 0.9-1.15 Activated Partial Thromboplast Time 25.6 24.5-34.5 SEC Urine Mucus Few None Seen Sodium Level 142 136-145 mmol/L Potassium Level 4.2 3.5-5.1 mmol/L Chloride Level 108 H 98-107 mmol/L Carbon Dioxide Level 26 20-31 mmol/L Anion Gap 8 5-15 Blood Urea Nitrogen 18 9-23 mg/dL Creatinine 1.32 H 0.700-1.30 mg/dL Glomerular Filtration Rate Calc 60 >90 mL/min BUN/Creatinine Ratio 13.6 10.0-20.0 Serum Glucose 89 74-106 mg/dL Calcium Level 10.1 8.7-10.4 mg/dL Total Bilirubin 0.8 0.2-1.0 mg/dL Aspartate Amino Transferase (AST) 27 13-40 U/L Alanine Aminotransferase (ALT) 36 7-40 U/L Alkaline Phosphatase 64 46-116 U/L Total Protein 7.2 5.7-8.2 g/dL Albumin 4.8 3.2-4.8 g/dL Assessment SEE DICTATED NOTE Plan discussed with: Patient Date of Service: Dec 31, 2024 Billing Provider: KASSIDY TURK MD Common Visit Codes: [id number] INP/OBS CARE (HIGH) KASSIDY TURK MD Dec 31, 2024 14:52
--- NOTE | 2024-12-31 15:08 | DVHINCON2 ---
DATE OF CONSULTATION: 12/31/2024 INTERNAL MEDICINE CONSULT HISTORY OF PRESENT ILLNESS: The patient is a 64-year-old gentleman who was admitted after he underwent surgery for the cervical spine for cervical spinal stenosis. The patient has no significant pain at this time. No chest pain, no shortness of breath, no nausea or vomiting. REVIEW OF SYSTEMS: Review of rest of systems is otherwise currently negative. PAST MEDICAL HISTORY: Significant for hypothyroidism and hypertension. MEDICATIONS: He takes nifedipine, levothyroxine, and vitamin B12. ALLERGIES: No known drug allergies. SOCIAL HISTORY: No history of smoking or alcohol. FAMILY HISTORY: Negative. PHYSICAL EXAMINATION: GENERAL: The patient is awake and alert. VITAL SIGNS: Temperature of 97, pulse of 91 per minute, blood pressure 122/81. SHEENT: Unremarkable. NECK: There is no JVD, no pedal edema. LUNGS: Equal bilaterally. There are no added sounds. CARDIOVASCULAR: S1 and S2 is regular. No murmurs. ABDOMEN: Soft. There is no organomegaly. NEUROLOGIC: Nonfocal. MUSCULOSKELETAL: There is a dressing at the site of the left neck surgery with a drain in place. ASSESSMENT AND PLAN: * Hypertension for which the patient will continue on nifedipine. * Hypothyroidism. He will continue on levothyroxine and a TSH will be obtained. * Status post cervical spine surgery for cervical spinal stenosis. The patient will be placed on pain medication and receive physical therapy and will be followed up by Dr. Ivy. MD CHRIS Sam/PATRICIA TID: [id number] RECEIPT: [id number] [facility]
[2024-12-31] MEDS: CYCLOBENZAPRINE HCL 10 MG TAB PO SCH (16:47)
[2024-12-31] MEDS: ceFAZolin 1GM/50ML 50 ML IV SCH (16:47)
[2024-12-31] MEDS: HYDROcodone-ACET 10/325MG TAB PO PRN (17:15)
[2024-12-31] MEDS ORDERED: SERT-160 PO (18:22)
[2024-12-31] MEDS: DOCUSATE SOD 100 MG CAP PO SCH (21:41)
[2025-01-01] VITALS (9 sets, daily range): BP systolic 110–171; BP diastolic 76–108; PULSE 98–118; RESP 17–20; TEMP 97.8–99.4; O2SAT 92–97
[2025-01-01] MEDS: hydrALAZINE HCL 20 MG/ML VL IV ONE (05:12)
[2025-01-01 07:32] LABS: Hematocrit 40.7 % (41.0-53.0); Hemoglobin 14.4 g/dL (13.5-17.5); Mean Corpuscular Hemoglobin 30.0 pg (28.0-32.0); Mean Corpuscular Volume 84.6 fL (80.0-100.0); Nucleated Red Blood Cells % 0.0 %
[2025-01-01 07:41] LABS: Alanine Aminotransferase 24 U/L (7-40); Albumin 4.3 g/dL (3.2-4.8); Alkaline Phosphatase 56 U/L (46-116); Anion Gap 11 (5-15); BUN/Creatinine Ratio 10.2 (10.0-20.0); Blood Urea Nitrogen 12 mg/dL (9-23); Calcium 9.3 mg/dL (8.7-10.4); Carbon Dioxide 25 mmol/L (20-31); Chloride 102 mmol/L (98-107); Potassium 3.9 mmol/L (3.5-5.1); Sodium 138 mmol/L (136-145); Total Protein 6.3 g/dL (5.7-8.2)
[2025-01-01 07:42] LABS: Bilirubin, Total 0.8 mg/dL (0.2-1.0)
[2025-01-01 07:43] LABS: Glucose 106 mg/dL (74-106)
[2025-01-01] MEDS: ASCORBIC ACID 500 MG TAB PO SCH (10:10)
[2025-01-01] MEDS: ASPirin-EC 81 mg tab PO SCH (10:10)
[2025-01-01] MEDS: LEVOTHYROXINE SODIUM 100 MCG TAB PO SCH (10:10)
[2025-01-01] MEDS: MORPHINE SULFATE INJ 2 MG/ml SYRG IV PRN (10:28)
--- NOTE | 2025-01-01 10:52 | DVHPN2 ---
Progress Note Date Seen: Jan 01, 2025 Medical Necessity Reason Pt with a Central, PICC or Fol: No Subjective Patient reports: No new complaints Review of Systems: HEENT:Normal, CVS:Normal, RESPIRATORY:Normal, GI:Normal, :Normal, MSK:Normal, NEURO:Normal Objective vital signs Vital Sign Date Time Temp Pulse Resp B/P (MAP) Pulse Ox O2 Delivery O2 Flow Rate FiO2 01/01/25 10:28 99 18 173/92 01/01/25 09:00 98.8 95 98.8 01/01/25 07:50 Nasal Cannula* 2 28 Total Intake and Output 12/31/24 12/31/24 01/01/25 15:00 23:00 07:00 Intake Total 110 ml 100 ml Output Total 350 ml Balance -350 ml 110 ml 100 ml medications Current Medications Medications Dose Ordered Sig/Severiano Route Start Time Stop Time Status Last Admin Dose Admin Dextrose/Sodium Chloride 1,000 ml @ 100 mls/hr Q10H IV 12/31/24 12:00 12/31/24 21:47 100 MLS/HR Ondansetron HCl 4 mg Q4HP PRN IV 12/31/24 12:00 Acetaminophen 650 mg Q6HP PRN PO 12/31/24 12:00 Acetaminophen/ Hydrocodone Bitart 1 tab Q6HP PRN PO 12/31/24 12:00 01/01/25 05:15 1 TAB Morphine Sulfate 1 mg Q4HP PRN IV 12/31/24 12:00 01/01/25 10:28 1 MG Cyclobenzaprine HCl 10 mg TID PO 12/31/24 14:00 01/01/25 05:12 10 MG Docusate Sodium 100 mg BID PO 12/31/24 22:00 01/01/25 10:09 100 MG Cefazolin Sodium 50 ml @ 100 mls/hr Q8HR IV 12/31/24 14:00 01/01/25 05:12 100 MLS/HR Nitroglycerin 0.4 mg Q5MINP PRN SL 12/31/24 12:00 Morphine Sulfate 2 mg Q30M PRN IV 12/31/24 12:00 Ascorbic Acid 500 mg DAILY PO 01/01/25 10:00 01/01/25 10:10 500 MG Aspirin 81 mg DAILY PO 01/01/25 10:00 01/01/25 10:10 81 MG Levothyroxine Sodium 100 mcg DAILY PO 01/01/25 10:00 01/01/25 10:10 100 MCG Nifedipine 30 mg DAILY PO 01/01/25 10:00 01/01/25 10:10 30 MG Examination: GENERAL:Normal, HEENT:Normal, NECK:Normal, LUNGS:Normal, CVS:Normal, ABDOMEN:Normal, MSK:Normal, MSK:Abnormal (left neck dressing), SKIN:Normal, NEURO:Normal, :Normal laboratory and microbiology Laboratory Tests 01/01/25 05:10 Test 01/01/25 05:10 Range/Units Serum Glucose 106 74-106 mg/dL Problem List/Assessment/Plan Problem List/Assessment/Plan * Hypertension for which the patient will continue on nifedipine. * Hypothyroidism. He will continue on levothyroxine and a TSH will be obtained. * Status post cervical spine surgery for cervical spinal stenosis. The patient will be placed on pain medication and receive physical therapy and will be followed up by Dr. Whiteside. advance care planning- full code- time spent 18 mins Plan discussed with: Patient My Orders My Orders Orders - KASSIDY TURK MD Procedure Category Date Status Time D5w-0.9%Ns 1000 Ml PHA 01/01/25 Verified 11:00 Hydralazine Injection PHA 01/01/25 Verified (Apresoline Inject 11:00 Basic Metabolic Panel LAB 01/02/25 Verified 06:00 Complete Blood Count LAB 01/02/25 Verified 06:00 Guaifenesin Plain PHA 01/01/25 Verified Liquid (Robitussin Charisse 11:00 2 Gm Sodium Diet DIET 01/01/25 Verified Lunch Date of Service: Jan 01, 2025 Billing Provider: KASSIDY TURK MD Common Visit Codes: [id number] INP/OBS CARE(HIGH) Secondary Visit Codes: [id number] CARE PLAN 30 MINUTES KASSIDY TURK MD Jan 01, 2025 10:52
[2025-01-01] MEDS: D5W/SOD CHLO 0.9% 1,000 ML IV SCH (11:16)
[2025-01-01] MEDS: hydrALAZINE HCL 20 MG/ML VL IV PRN (11:17)
--- NOTE | 2025-01-01 11:34 | DVH ---
FLUOROSCOPY TIME: 73.4 TECHNIQUE: Intraoperative radiographs of the cervical spine were obtained. COMPARISON: XY C ARM FLUOROSCOPY UP TO 60MIN on DOS: 06/06/24 FINDINGS: Refer to intraoperative report for further evaluation. IMPRESSION: Refer to intraoperative report for further evaluation.
--- NOTE | 2025-01-01 12:06 | DVHINCON2 ---
Date of service: Jan 01, 2025 Referring Physician Hospitalist Reason for Consultation Urinary retention History of Present Illness Postoperatively, patient unable to void. Bladder scan showed >550 ml. Negrete catheter inserted last evening. Patient denies prior history of urinary retention. Past Medical History Cervical spinal stenosis Radiculopathy Past Surgical History Surgeries for cervical stenosis 06/06/24 and 12/31/24. Family History: Cardiovascular disease G8 FATHER FH: kidney cancer G8 MOTHER Allergies: Coded Allergies: NO KNOWN ALLERGIES (Unverified , 12/08/16) Home Meds Reported Medications Sertraline Hcl (Sertraline Hcl) 100 Mg Tab, 1 TAB PO DAILY, #90 TAB 1 Refill 12/31/24 Echinacea Purpurea Aerial (Echinacea) 650 Mg Cap, 650 MG PO DAILY, CAP 12/25/24 Cholecalciferol (D3) 25 Mcg Chw, 25 MCG PO DAILY, TAB.CHEW 12/25/24 Ascorbic Acid (VITAMIN C TABLET) 500 Mg Tb, 1 TAB PO DAILY, #30 TAB 12/25/24 Cyanocobalamin (B12) 1,000 Mcg Tab, 1000 MCG PO DAILY, TAB 12/25/24 Nifedipine (Nifedipine Er) 30 Mg Tab, 1 TAB PO DAILY, #90 TAB 3 Refills 12/25/24 Sumatriptan Succinate (Imitrex) 50 Mg Tab, 50 MG PO, TAB 05/31/24 Aspirin (Aspir-81) 81 Mg Tab, 81 MG PO DAILY, TAB 05/31/24 Levothyroxine Sodium (Levoxyl) 100 Mcg Tab, 100 MCG PO DAILY, TAB 05/31/24 Current Medications Current Medications Medications (Trade) Dose Ordered Sig/Severiano Route PRN Reason Start Time Stop Time Status Last Admin Cyclobenzaprine HCl (Flexeril Tablet) 10 mg TID PO 12/31/24 14:00 01/01/25 05:12 Docusate Sodium (Colace Capsule) 100 mg BID PO 12/31/24 22:00 01/01/25 10:09 Cefazolin Sodium 50 ml @ 100 mls/hr Q8HR IV 12/31/24 14:00 01/01/25 05:12 Ascorbic Acid (Vitamin C Tablet) 500 mg DAILY PO 01/01/25 10:00 01/01/25 10:10 Aspirin (Ecotrin Enteric Coated Tablet) 81 mg DAILY PO 01/01/25 10:00 01/01/25 10:10 Levothyroxine Sodium (Synthroid Tablet) 100 mcg DAILY PO 01/01/25 10:00 01/01/25 11:03 DC 01/01/25 10:10 Nifedipine (Procardia Xl (Time-Release)) 30 mg DAILY PO 01/01/25 10:00 01/01/25 10:10 Hydromorphone HCl (Dilaudid Injection) 0.5 mg Q10M PRN IV SEVERE PAIN (7-10 PAIN SCALE) 12/31/24 12:30 12/31/24 13:11 DC Dextrose/Sodium Chloride 1,000 ml @ 60 mls/hr [id number] IV 01/01/25 11:00 01/01/25 11:16 Hydralazine HCl (Apresoline Injection) 10 mg Q6HP PRN IV SBP>150 01/01/25 11:00 01/01/25 11:17 Guaifenesin (Robitussin Plain Liquid) 200 mg Q4HP PRN PO FOR COUGH 01/01/25 11:00 Levothyroxine Sodium (Synthroid Tablet) 100 mcg QAM PO 01/02/25 07:00 Vital Signs Vital Signs Date Time Temp Pulse Resp B/P (MAP) Pulse Ox O2 Delivery O2 Flow Rate FiO2 01/01/25 11:17 173/92 01/01/25 10:28 99 18 01/01/25 09:00 98.8 95 98.8 01/01/25 07:50 Nasal Cannula* 2 28 Physical Exam Negrete in place Labs/Diagnostic Data Labs Test 01/01/25 05:10 12/31/24 12:00 12/30/24 09:45 Range/Units White Blood Count 10.9 #H 4.4-10.8 10^3/uL Red Blood Count 4.81 4.5-5.90 10^6/uL Hemoglobin 14.4 13.5-17.5 g/dL Hematocrit 40.7 #L 41.0-53.0 % Mean Corpuscular Volume 84.6 80.0-100.0 fL Mean Corpuscular Hemoglobin 30.0 28.0-32.0 pg Mean Corpuscular Hemoglobin Concent 35.5 32.0-36.0 g/dL Red Cell Distribution Width 13.1 11.8-14.3 % Platelet Count 198 140-450 10^3/uL Mean Platelet Volume 8.4 6.9-10.8 fL Neutrophils (%) (Auto) 82.9 H 37.0-80.0 % Lymphocytes (%) (Auto) 9.1 L 10.0-50.0 % Monocytes (%) (Auto) 7.9 0.0-12.0 % Eosinophils (%) (Auto) 0.0 0.0-7.0 % Basophils (%) (Auto) 0.1 0.0-2.0 % Neutrophils # (Auto) 9.0 H 1.6-8.6 10 ^3/uL Lymphocytes # (Auto) 1.0 0.4-5.4 10 ^3/uL Monocytes # (Auto) 0.9 0-1.3 10 ^3/uL Eosinophils # (Auto) 0 0-0.8 10 ^3/uL Basophils # (Auto) 0 0-0.2 10 ^3/uL Nucleated Red Blood Cells 0.0 % Sodium Level 138 136-145 mmol/L Potassium Level 3.9 3.5-5.1 mmol/L Chloride Level 102 98-107 mmol/L Carbon Dioxide Level 25 20-31 mmol/L Anion Gap 11 5-15 Blood Urea Nitrogen 12 9-23 mg/dL Creatinine 1.18 0.700-1.30 mg/dL Glomerular Filtration Rate Calc 68 >90 mL/min BUN/Creatinine Ratio 10.2 10.0-20.0 Serum Glucose 106 74-106 mg/dL Calcium Level 9.3 8.7-10.4 mg/dL Total Bilirubin 0.8 0.2-1.0 mg/dL Aspartate Amino Transferase (AST) 29 13-40 U/L Alanine Aminotransferase (ALT) 24 7-40 U/L Alkaline Phosphatase 56 46-116 U/L Total Protein 6.3 5.7-8.2 g/dL Albumin 4.3 3.2-4.8 g/dL Thyroid Stimulating Hormone (TSH) 1.80 0.55-4.78 uIU/mL Urine Color Colorless Yellow Urine Clarity Turbid H Clear Urine pH 5.5 5.0-9.0 Urine Specific Cedar 1.015 1.001-1.035 Urine Protein Trace H Negative Urine Ketones Negative Negative Urine Blood 3+ H Negative /uL Urine Nitrite Negative Negative Urine Bilirubin Negative Negative Urine Urobilinogen Normal Negative mg/dL Urine Leukocyte Esterase Negative Negative /uL Urine RBC 159 0 - 3 /hpf Urine Microscopic WBC 11 H 0-3 /HPF Urine Squamous Epithelial Cells None seen <5 /hpf Urine Amorphous Crystals Few None Seen /hpf Urine Bacteria Few H None Seen /hpf Urine Hyaline Casts Few 0 - 2 /lpf Urine Glucose Normal Normal mg/dL Prothrombin Time 10.3 9.3-11.8 sec Prothrombin Time INR 0.97 0.9-1.15 Activated Partial Thromboplast Time 25.6 24.5-34.5 SEC Urine Mucus Few None Seen Microbiology Date/Time Source Procedure Growth Status 12/31/24 12:00 Urine - Negrete Port Urine Culture - Preliminary Resulted Assessment Urinary retention BPH Plan/Recommendation Negrete to gravity Urine culture negtative Cystoscopy/UDS TBA PSA Start Flomax and Finasteride Plan discussed with: Patient, Other MELLY YOUNG MD Jan 01, 2025 12:05
[2025-01-01] MEDS: ONDANSETRON HCL 4 MG/2 ML VIAL IV PRN (13:32)
--- NOTE | 2025-01-01 16:09 | DVHPN2 ---
Progress Note - Surgical Date Seen: Jan 01, 2025 Post op day Post op day: 1 Subjective Patient reports: No new complaints, Feels better Review of Systems: HEENT:Normal, CVS:Normal, RESPIRATORY:Normal, GI:Normal, :Normal, MSK:Normal, NEURO:Abnormal (LBP) Objective Vital signs Vital Sign Date Time Temp Pulse Resp B/P (MAP) Pulse Ox O2 Delivery O2 Flow Rate FiO2 01/01/25 13:00 98.5 107 20 170/108 (128) 93 98.5 01/01/25 07:50 Nasal Cannula* 2 28 Total Intake and Output 12/31/24 12/31/24 01/01/25 15:00 23:00 07:00 Intake Total 110 ml 100 ml Output Total 350 ml Balance -350 ml 110 ml 100 ml Medications Current Medications Medications Dose Ordered Sig/Severiano Route Start Time Stop Time Status Last Admin Dose Admin Ondansetron HCl 4 mg Q4HP PRN IV 12/31/24 12:00 01/01/25 13:32 4 MG Acetaminophen 650 mg Q6HP PRN PO 12/31/24 12:00 Acetaminophen/ Hydrocodone Bitart 1 tab Q6HP PRN PO 12/31/24 12:00 01/01/25 05:15 1 TAB Morphine Sulfate 1 mg Q4HP PRN IV 12/31/24 12:00 01/01/25 10:28 1 MG Cyclobenzaprine HCl 10 mg TID PO 12/31/24 14:00 01/01/25 13:32 10 MG Docusate Sodium 100 mg BID PO 12/31/24 22:00 01/01/25 10:09 100 MG Cefazolin Sodium 50 ml @ 100 mls/hr Q8HR IV 12/31/24 14:00 01/01/25 13:32 100 MLS/HR Nitroglycerin 0.4 mg Q5MINP PRN SL 12/31/24 12:00 Morphine Sulfate 2 mg Q30M PRN IV 12/31/24 12:00 Ascorbic Acid 500 mg DAILY PO 01/01/25 10:00 01/01/25 10:10 500 MG Aspirin 81 mg DAILY PO 01/01/25 10:00 01/01/25 10:10 81 MG Nifedipine 30 mg DAILY PO 01/01/25 10:00 01/01/25 10:10 30 MG Dextrose/Sodium Chloride 1,000 ml @ 60 mls/hr [id number] IV 01/01/25 11:00 01/01/25 11:16 60 MLS/HR Hydralazine HCl 10 mg Q6HP PRN IV 01/01/25 11:00 01/01/25 11:17 10 MG Guaifenesin 200 mg Q4HP PRN PO 01/01/25 11:00 Levothyroxine Sodium 100 mcg QAM PO 01/02/25 07:00 Laboratory Laboratory Tests 01/01/25 05:10 Test 01/01/25 05:10 Range/Units Serum Glucose 106 74-106 mg/dL Microbiology Date/Time Source Procedure Growth Status 12/31/24 12:00 Urine - Burrell Port Urine Culture - Preliminary Resulted Examination: GENERAL:Normal, HEENT:Normal, NECK:Normal, LUNGS:Normal, CVS:Normal, ABDOMEN:Normal, MSK:Normal, SKIN:Normal (LEFT ANTERIOR SURGICAL SITE WELL APPROXIMATED WITH MILLIE, DRAIN INTACT.), NEURO:Normal (IMPROVMENT IN PREOP SYMPTOMS), :Abnormal (needed burrell put in for urinary retention) Problem List/Assessment/Plan Problems: (1) Acute post-operative pain (2) Muscle spasms of neck Assessment and Plan Postoperative day 1. Patient had difficulty with urinary retention last night bladder scan greater than 550 mL and Burrell catheter was placed urology consult was also placed Call from night staff nurse Lida on regarding dressings being saturated. Patient was seen last night at 2040 hours in the new dressing was applied with the rfp writer this paper Drain discontinued patient tolerated well sore throat, good ROM, recommended ice chips, Cepacol lozenges. plan to DC 01/02 just started tolerating solid foods Disposition: -Pending DX: Cervical Degenerative Disk Disease and Spinal Stenosis Causing incapacitating neck pain, radiculopathy and progressive neurologic deficit -Discharge RX: -Follow up appointment: with Dr Ivy on scheduled appointment in two weeks postoperatively [id number] [facility] [address] Abbott [address] [place] [id number] -Pain: - IV pain meds post op day 1, with PO supplementation, goal is to progress weaning off IV medications and control pain with PO only. morphine 1mg q 4 hours (PAIN 7-10) - P.O. analgesics:Tylenol 650MG (PAIN 1-3) [place] 10/325 mg (PAIN 4-6) - Muscle relaxers scheduled administration. This is a beneficial medications for the incisional pain as it is mostly related to muscle spasms. Flexeril 10 mg TID - Cepacol throat lozenges as needed for sore throat -Antibiotics Operative recommendations: -Postoperative dose:-Post operative antibiotics cefazolin 1 g IV piggyback every 8 hours x 48 hours total of 6 doses -DVT PPX: -Hold all chemical DVT/ blood thinners for 14 days postoperatively -use mechanical DVT PPX such as SCD's, ambulation -Activity: -Pending PT evaluation and patients progression -Sit at side of bed for meals -Goal: Ambulate independently and safely (may use assistive devices if needed) -Medical Therapy goals: -Afebrile- Patient may develop a expected post operative fever by day 2-3, this may not be accompanied with a elevation in WBC. if fever develops: Acetaminophen for fever. Albuterol nebulizer Tx every 12 hours for 24 hours to facilitate adequate lung expansion and prevent development of atelectasis. -Euglycemic: bloods sugars under 130mmol/L for optimal healing -Normotensive: Avoid events of hypertension. This helps to keep post operative healing intact and avoids destabilization of beneficial hemostatic coagulation. Drains -Bulb drains: record output and characteristics of the drainage EVERY 6 HOURS- if there is no output indicate this by documenting 0ml output in note.. These will be to thumbprint compression unless otherwise ordered. Record output as well as amount in a note at least every 6 houtrs- more if indicated. Wound drainage is described by type, color, amount, and odor. Drainage can be 1 serous: Clear and thin, may be present in healing healthy wound. 2 serosanguineous containing blood may also be present and healthy healing wound 3. Sanguinous primarily blood 4. Purulent this is thick, white, and pus like. It may be indicated to give of a infection and should constitute a call to the provider immediately with the plan that the sample should be cultured. -Dressings -Anterior cervical patients: Initial surgical dressing may be reinforced if needed. If there is excessive bleeding, leaking, drainage in the bulb drain notify provider -Bowel management: -Colace 100mg bid -Diet: -Clear liquid diet and advance as patient tolerates within dietary limitations ( example: diabetic, Cardiac) -Incentive Spirometer: -10 x hour while awake, RN please educate and observe repeat demonstration, have IS at bedside POD #1 -X-rays: - none indicated at this time -Consults: -Physical Therapy evaluation, treatment recommendations, and discharge recommendations Call with questions Barbara Ann ACNP- Orthopaedic Spine Surgery nurse practitioner For Dr Cecily Ivy Patient was examined, chart reviewed, labs evaluated, and diagnostic studies and findings analyzed. Case was discussed with Dr. Farhan Ivy who formulated the plan of care. This medical document was created using an electronic medical record system with S[employer]iel dictation system. Although this document has been carefully reviewed, there might still be some phonetic and typographical errors. These areas are purely typographical due to imperfections of the software programs, and do not reflect any compromise in the patient's medical care. Plan discussed with Plan discussed with: Patient, Other (Lida X [id number]) Visit Coding Surgery Date of Service if different f: Dec 31, 2024 Billing Provider: SERENE ANN NP Surgery Visit Codes: NOT BILLABLE SERENE ANN NP Jan 01, 2025 16:09
[2025-01-01] MEDS: THROAT LOZENGES(CEPASTAT) MT PRN (22:20)
[2025-01-02] VITALS (8 sets, daily range): BP systolic 127–149; BP diastolic 78–93; PULSE 89–104; RESP 17–20; TEMP 88–100.4; O2SAT 93–98
[2025-01-02] MEDS: LEVOTHYROXINE SODIUM 100 MCG TAB PO SCH (05:45)
[2025-01-02 07:19] LABS: Hematocrit 44.5 % (41.0-53.0); Hemoglobin 15.5 g/dL (13.5-17.5); Mean Corpuscular Hemoglobin 29.6 pg (28.0-32.0); Mean Corpuscular Volume 84.8 fL (80.0-100.0); Nucleated Red Blood Cells % 0.1 %
[2025-01-02 07:23] LABS: Calcium 10.0 mg/dL (8.7-10.4); Chloride 106 mmol/L (98-107); Potassium 4.2 mmol/L (3.5-5.1); Sodium 141 mmol/L (136-145)
[2025-01-02 07:24] LABS: Anion Gap 11 (5-15); Carbon Dioxide 24 mmol/L (20-31)
[2025-01-02 07:29] LABS: BUN/Creatinine Ratio 10.2 (10.0-20.0); Blood Urea Nitrogen 13 mg/dL (9-23)
[2025-01-02 07:35] LABS: Glucose 141 mg/dL (74-106)
[2025-01-02 08:07] LABS: Prostate Specific Antigen 3.0 ng/mL (0.0-4.0)
[2025-01-02] MEDS: ACETAMINOPHEN 325 MG TAB PO PRN (09:26)
--- NOTE | 2025-01-02 10:02 | DVHPN2 ---
Progress Note Date Seen: Jan 02, 2025 Medical Necessity Reason Pt with a Central, PICC or Fol: Yes The following are medically ne: Burrell Catheter Reason for burrell catheter: Strict I&O Subjective Patient reports: No new complaints Review of Systems: HEENT:Normal, CVS:Normal, RESPIRATORY:Normal, GI:Normal, :Normal, MSK:Normal, NEURO:Normal Objective vital signs Vital Sign Date Time Temp Pulse Resp B/P (MAP) Pulse Ox O2 Delivery O2 Flow Rate FiO2 01/02/25 09:28 149/93 01/02/25 08:07 100.4 96 18 98 100.4 01/01/25 20:00 Nasal Cannula* 2 28 Total Intake and Output 01/01/25 01/01/25 01/02/25 15:00 23:00 07:00 Intake Total 100 ml 50 ml 850 ml Output Total 5800 ml 6503 ml 3600 ml Balance -5700 ml -6453 ml -2750 ml medications Current Medications Medications Dose Ordered Sig/Severiano Route Start Time Stop Time Status Last Admin Dose Admin Ondansetron HCl 4 mg Q4HP PRN IV 12/31/24 12:00 01/01/25 13:32 4 MG Acetaminophen 650 mg Q6HP PRN PO 12/31/24 12:00 01/02/25 09:26 650 MG Acetaminophen/ Hydrocodone Bitart 1 tab Q6HP PRN PO 12/31/24 12:00 01/01/25 05:15 1 TAB Morphine Sulfate 1 mg Q4HP PRN IV 12/31/24 12:00 01/01/25 10:28 1 MG Cyclobenzaprine HCl 10 mg TID PO 12/31/24 14:00 01/02/25 05:45 10 MG Docusate Sodium 100 mg BID PO 12/31/24 22:00 01/02/25 09:28 100 MG Cefazolin Sodium 50 ml @ 100 mls/hr Q8HR IV 12/31/24 14:00 01/02/25 05:46 100 MLS/HR Nitroglycerin 0.4 mg Q5MINP PRN SL 12/31/24 12:00 Morphine Sulfate 2 mg Q30M PRN IV 12/31/24 12:00 Ascorbic Acid 500 mg DAILY PO 01/01/25 10:00 01/02/25 09:27 500 MG Aspirin 81 mg DAILY PO 01/01/25 10:00 01/02/25 09:27 81 MG Nifedipine 30 mg DAILY PO 01/01/25 10:00 01/02/25 09:28 30 MG Dextrose/Sodium Chloride 1,000 ml @ 60 mls/hr [id number] IV 01/01/25 11:00 01/01/25 11:16 60 MLS/HR Hydralazine HCl 10 mg Q6HP PRN IV 01/01/25 11:00 01/01/25 11:17 10 MG Guaifenesin 200 mg Q4HP PRN PO 01/01/25 11:00 Levothyroxine Sodium 100 mcg QAM PO 01/02/25 07:00 01/02/25 05:45 100 MCG Throat Lozenges 1 shayna Q2HP PRN MT 01/01/25 20:45 01/02/25 05:47 1 SHAYNA Examination: GENERAL:Normal, HEENT:Normal, NECK:Normal, LUNGS:Normal, CVS:Normal, ABDOMEN:Normal, MSK:Normal, MSK:Abnormal (LEFT NECK DRESSING), SKIN:Normal, NEURO:Normal, :Normal laboratory and microbiology Laboratory Tests 01/02/25 05:59 Test 01/02/25 05:59 Range/Units Serum Glucose 141 H 74-106 mg/dL Microbiology Date/Time Source Procedure Growth Status 12/31/24 12:00 Urine - Burrell Port Urine Culture - Preliminary Resulted Problem List/Assessment/Plan Problem List/Assessment/Plan * Hypertension for which the patient will continue on nifedipine. * Hypothyroidism. He will continue on levothyroxine and a TSH will be obtained. * urinary retention: has burrell cath * Status post cervical spine surgery for cervical spinal stenosis. The patient will be placed on pain medication and receive physical therapy and will be followed up by Dr. Whiteside. advance care planning- full code- time spent 18 mins Plan discussed with: Patient My Orders My Orders Orders - KASSIDY TURK MD Procedure Category Date Status Time D5w/Sod Chlo 0.9% PHA 01/01/25 In Process (D5w Ns 0.9%) 11:00 Hydralazine Injection PHA 01/01/25 In Process (Apresoline Inject 11:00 Guaifenesin Plain PHA 01/01/25 In Process Liquid (Robitussin Charisse 11:00 2 Gm Sodium Diet DIET 01/01/25 Transmitted Lunch Date of Service: Jan 02, 2025 Billing Provider: KASSIDY TURK MD Common Visit Codes: [id number] INP/OBS CARE(HIGH) KASSIDY TURK MD Jan 02, 2025 10:02
[2025-01-02] MEDS: TAMSULOSIN HYDROCHLORIDE 0.4 MG CAP PO ONE (12:34)
[2025-01-02] MEDS: FINASTERIDE 5 MG TAB PO ONE (12:35)
--- NOTE | 2025-01-02 15:17 | DVHPN2 ---
Progress Note - Surgical Date Seen: Jan 02, 2025 Post op day Post op day: 2 Subjective Patient reports: No new complaints, Feels better Review of Systems: HEENT:Normal, CVS:Normal, RESPIRATORY:Normal, GI:Normal, :Normal, NEURO:Normal Objective Vital signs Vital Sign Date Time Temp Pulse Resp B/P (MAP) Pulse Ox O2 Delivery O2 Flow Rate FiO2 01/02/25 12:58 98.4 102 20 129/85 (100) 94 98.4 01/02/25 08:00 Room Air* 0 21 Total Intake and Output 01/01/25 01/01/25 01/02/25 15:00 23:00 07:00 Intake Total 100 ml 50 ml 850 ml Output Total 5800 ml 6503 ml 3600 ml Balance -5700 ml -6453 ml -2750 ml Medications Current Medications Medications Dose Ordered Sig/Severiano Route Start Time Stop Time Status Last Admin Dose Admin Ondansetron HCl 4 mg Q4HP PRN IV 12/31/24 12:00 01/01/25 13:32 4 MG Acetaminophen 650 mg Q6HP PRN PO 12/31/24 12:00 01/02/25 09:26 650 MG Acetaminophen/ Hydrocodone Bitart 1 tab Q6HP PRN PO 12/31/24 12:00 01/01/25 05:15 1 TAB Morphine Sulfate 1 mg Q4HP PRN IV 12/31/24 12:00 01/01/25 10:28 1 MG Cyclobenzaprine HCl 10 mg TID PO 12/31/24 14:00 01/02/25 14:42 10 MG Docusate Sodium 100 mg BID PO 12/31/24 22:00 01/02/25 09:28 100 MG Cefazolin Sodium 50 ml @ 100 mls/hr Q8HR IV 12/31/24 14:00 01/02/25 12:34 100 MLS/HR Nitroglycerin 0.4 mg Q5MINP PRN SL 12/31/24 12:00 Morphine Sulfate 2 mg Q30M PRN IV 12/31/24 12:00 Ascorbic Acid 500 mg DAILY PO 01/01/25 10:00 01/02/25 09:27 500 MG Aspirin 81 mg DAILY PO 01/01/25 10:00 01/02/25 09:27 81 MG Nifedipine 30 mg DAILY PO 01/01/25 10:00 01/02/25 09:28 30 MG Hydralazine HCl 10 mg Q6HP PRN IV 01/01/25 11:00 01/01/25 11:17 10 MG Guaifenesin 200 mg Q4HP PRN PO 01/01/25 11:00 Levothyroxine Sodium 100 mcg QAM PO 01/02/25 07:00 01/02/25 05:45 100 MCG Throat Lozenges 1 shayna Q2HP PRN MT 01/01/25 20:45 01/02/25 05:47 1 SHAYNA Tamsulosin HCl 0.4 mg QPM PO 01/03/25 18:00 Finasteride 5 mg DAILY PO 01/03/25 10:00 Laboratory Laboratory Tests 01/02/25 05:59 Test 01/02/25 05:59 Range/Units Serum Glucose 141 H 74-106 mg/dL Microbiology Date/Time Source Procedure Growth Status 12/31/24 12:00 Urine - Burrell Port Urine Culture - Final Complete Examination: GENERAL:Normal, HEENT:Normal, NECK:Normal, LUNGS:Normal, CVS:Normal, ABDOMEN:Normal, MSK:Normal, SKIN:Normal (left anterior neck wound well approximated with nicole, no drainage from drain site), NEURO:Normal (improcement in preop symptoms), :Abnormal (DC with burrell cath, FU with dr Atkins in one week) Problem List/Assessment/Plan Assessment and Plan Postoperative day 2. Patient will be dc'd with Burrell catheter in place and will follow up with DR Atkins in one week. sore throat DC today. Disposition: home DX: Cervical Degenerative Disk Disease and Spinal Stenosis Causing incapacitating neck pain, radiculopathy and progressive neurologic deficit -Follow up appointment: with Dr Ivy on scheduled appointment in two weeks postoperatively [id number] [facility] [address] Abbott [address] [place] [phone] -Pain: - IV pain meds post op day 1, with PO supplementation, goal is to progress weaning off IV medications and control pain with PO only. morphine 1mg q 4 hours (PAIN 7-10) - P.O. analgesics:Tylenol 650MG (PAIN 1-3) [place] 10/325 mg (PAIN 4-6) - Muscle relaxers scheduled administration. This is a beneficial medications for the incisional pain as it is mostly related to muscle spasms. Flexeril 10 mg TID - Cepacol throat lozenges as needed for sore throat -Antibiotics Operative recommendations: -Postoperative dose:-Post operative antibiotics cefazolin 1 g IV piggyback every 8 hours x 48 hours total of 6 doses -DVT PPX: -Hold all chemical DVT/ blood thinners for 14 days postoperatively -use mechanical DVT PPX such as SCD's, ambulation -Activity: -Pending PT evaluation and patients progression -Sit at side of bed for meals -Goal: Ambulate independently and safely (may use assistive devices if needed) -Medical Therapy goals: -Afebrile- Patient may develop a expected post operative fever by day 2-3, this may not be accompanied with a elevation in WBC. if fever develops: Acetaminophen for fever. Albuterol nebulizer Tx every 12 hours for 24 hours to facilitate adequate lung expansion and prevent development of atelectasis. -Euglycemic: bloods sugars under 130mmol/L for optimal healing -Normotensive: Avoid events of hypertension. This helps to keep post operative healing intact and avoids destabilization of beneficial hemostatic coagulation -Dressings -Anterior cervical patients: Initial surgical dressing may be reinforced if needed. If there is excessive bleeding, leaking, drainage in the bulb drain notify provider -Bowel management: -Colace 100mg bid -Diet: -Clear liquid diet and advance as patient tolerates within dietary limitations ( example: diabetic, Cardiac) -Incentive Spirometer: -10 x hour while awake, RN please educate and observe repeat demonstration, have IS at bedside POD #1 -X-rays: - none indicated at this time -Consults: -Physical Therapy evaluation, treatment recommendations, and discharge recommendations Call with questions Barbara Ann ACNP- Orthopaedic Spine Surgery nurse practitioner For Dr Cecily Ivy Patient was examined, chart reviewed, labs evaluated, and diagnostic studies and findings analyzed. Case was discussed with Dr. Farhan Ivy who formulated the plan of care. This medical document was created using an electronic medical record system with [employer] system. Although this document has been carefully reviewed, there might still be some phonetic and typographical errors. These areas are purely typographical due to imperfections of the software programs, and do not reflect any compromise in the patient's medical care. My Orders My Orders Orders - SERENE ANN [employer]AL MEDIATOR Procedure Category Date Status Time Throat Lozenges PHA 01/01/25 In Process (Cepastat Lozenges) 20:45 Communication Order ORDERS 01/01/25 Transmitted 20:45 Plan discussed with Plan discussed with: Patient, Other () Visit Coding Surgery Date of Service if different f: Dec 31, 2024 Billing Provider: SERENE ANN NP Surgery Visit Codes: NOT BILLABLE SERENE ANN NP Jan 02, 2025 15:17
[2025-01-02] MEDS ORDERED: DOCU-265 PO ×2 (15:19→18:30)
[2025-01-02] MEDS ORDERED: CYCL-611 PO ×2 (15:19→18:30)
[2025-01-02] MEDS ORDERED: HYDR-4798 PO ×2 (15:19→18:30)
--- NOTE | 2025-01-02 18:45 | DVHDS2 ---
Discharge Summary Date of Admission Dec 31, 2024 at 11:56 Date of Discharge: Jan 02, 2025 Admitting Diagnosis Cervical Degenerative Disk Disease and Severe Spinal Stenosis Causing incapacitating neck pain, radiculopathy and progressive neurologic deficit Wounds: Left anterior neck wound, wound edges are well approximated with nicole, small inferior drain site which is free of drainage at this time. Skin is soft supple no signs of redness, pus, flatulence to light palpation, minimal pain with palpation to wound edges. No signs of infection Labs/Diagnostic Data: Laboratory Results Test 01/02/25 05:59 01/01/25 05:10 12/31/24 12:00 12/30/24 09:45 White Blood Count 9.4 10^3/uL (4.4-10.8) Red Blood Count 5.25 10^6/uL (4.5-5.90) Hemoglobin 15.5 g/dL (13.5-17.5) Hematocrit 44.5 % (41.0-53.0) Mean Corpuscular Volume 84.8 fL (80.0-100.0) Mean Corpuscular Hemoglobin 29.6 pg (28.0-32.0) Mean Corpuscular Hemoglobin Concent 34.9 g/dL (32.0-36.0) Red Cell Distribution Width 13.1 % (11.8-14.3) Platelet Count 221 10^3/uL (140-450) Mean Platelet Volume 8.7 fL (6.9-10.8) Neutrophils (%) (Auto) 86.1 % (37.0-80.0) Lymphocytes (%) (Auto) 9.8 % (10.0-50.0) Monocytes (%) (Auto) 4.0 % (0.0-12.0) Eosinophils (%) (Auto) 0.0 % (0.0-7.0) Basophils (%) (Auto) 0.1 % (0.0-2.0) Neutrophils # (Auto) 8.1 10 ^3/uL (1.6-8.6) Lymphocytes # (Auto) 0.9 10 ^3/uL (0.4-5.4) Monocytes # (Auto) 0.4 10 ^3/uL (0-1.3) Eosinophils # (Auto) 0 10 ^3/uL (0-0.8) Basophils # (Auto) 0 10 ^3/uL (0-0.2) Nucleated Red Blood Cells 0.1 % Sodium Level 141 mmol/L (136-145) Potassium Level 4.2 mmol/L (3.5-5.1) Chloride Level 106 mmol/L (98-107) Carbon Dioxide Level 24 mmol/L (20-31) Anion Gap 11 (5-15) Blood Urea Nitrogen 13 mg/dL (9-23) Creatinine 1.27 mg/dL (0.700-1.30) Glomerular Filtration Rate Calc 63 mL/min (>90) BUN/Creatinine Ratio 10.2 (10.0-20.0) Serum Glucose 141 mg/dL (74-106) Calcium Level 10.0 mg/dL (8.7-10.4) Total Bilirubin 0.8 mg/dL (0.2-1.0) Aspartate Amino Transferase (AST) 29 U/L (13-40) Alanine Aminotransferase (ALT) 24 U/L (7-40) Alkaline Phosphatase 56 U/L (46-116) Total Protein 6.3 g/dL (5.7-8.2) Albumin 4.3 g/dL (3.2-4.8) Free Prostate Specific Antigen 1.14 ng/mL (N/A) Percent Free Prostate Specific Ag 38.0 % (.) Prostate Specific Antigen Total 3.0 ng/mL (0.0-4.0) Thyroid Stimulating Hormone (TSH) 1.80 uIU/mL (0.55-4.78) Urine Color Colorless (Yellow) Urine Clarity Turbid (Clear) Urine pH 5.5 (5.0-9.0) Urine Specific [place] 1.015 (1.001-1.035) Urine Protein Trace (Negative) Urine Ketones Negative (Negative) Urine Blood 3+ /uL (Negative) Urine Nitrite Negative (Negative) Urine Bilirubin Negative (Negative) Urine Urobilinogen Normal mg/dL (Negative) Urine Leukocyte Esterase Negative /uL (Negative) Urine RBC 159 /hpf (0 - 3) Urine Microscopic WBC 11 /HPF (0-3) Urine Squamous Epithelial Cells None seen /hpf (<5) Urine Amorphous Crystals Few /hpf (None Seen) Urine Bacteria Few /hpf (None Seen) Urine Hyaline Casts Few /lpf (0 - 2) Urine Glucose Normal mg/dL (Normal) Prothrombin Time 10.3 sec (9.3-11.8) Prothrombin Time INR 0.97 (0.9-1.15) Activated Partial Thromboplast Time 25.6 SEC (24.5-34.5) Urine Mucus Few (None Seen) Other Laboratory Tests 01/02/25 05:59 Brief Hx & Hospital Course: Patient arrived for elective surgery with Master P Post Op Diagnosis: 1. Cervical Degenerative Disk Disease and Spinal Stenosis Causing incapacitating neck pain, radiculopathy and progressive neurologic deficit Procedure: Cervical 3 to 4 anterior cervical discectomy with Cervical 3-4 foraminotomies and facetectomies to decompression the spinal canal and Cervical 4 nerve roots Cervical 4 to 5 anterior cervical discectomy with Cervical 4-5 foraminotomies and facetectomies to decompression the spinal canal and Cervical 5 nerve roots Cervical 3-5 anterior cervical Fusion Cervical 3-5 anterior cervical instrumentation with freestanding cages Cervical 3-4 placement of allograft prosthetic device Cervical 4-5 placement of allograft prosthetic device He was admitted to the hospital for postoperative care and pain management, he had a sore throat which was treated with steroids and pain medication. Patient is able to swallow, handle his secretions at this time. Patient does have a slightly hoarse voice however he has had problems with his vocal cords in the past. Patient feels comfortable being discharged home and understands the to use his foods correctly as in they are soft and easy to manage he understands to take small bites. He also understands as well as his that if he has any trouble breathing, swallowing normal secretions, speaking then he has to go to the nearest emergency room. Patient also had a bout of urinary retention and which Urology was consulted, Dr. Atkins recommended to discharge the patient with a Negrete catheter in place and he will see the patient was a follow up outpatient this week. Operations or Procedures Procedure: Cervical 3 to 4 anterior cervical discectomy with Cervical 3-4 foraminotomies and facetectomies to decompression the spinal canal and Cervical 4 nerve roots Cervical 4 to 5 anterior cervical discectomy with Cervical 4-5 foraminotomies and facetectomies to decompression the spinal canal and Cervical 5 nerve roots Condition at Discharge: Good Final Diagnosis/Problems List 1. Cervical Degenerative Disk Disease and Spinal Stenosis Causingincapacitating neck pain, radiculopathy and progressive neurologic deficit Problems List: (1) Acute post-operative pain (2) Muscle spasms of neck (3) Acute sore throat Discharge Disposition: Home with Health Services Discharge Instruct/Medications Diet: See Comment Diet comment: As tolerated choose foods that are soft and easy to chew and swallow. Activity: No Restrictions, As Tolerated Activity comment: Continue moving her neck in a normal fashion, you can use hot or cold packs for soothing comfort if you feel it is necessary. You may take a shower without your dressings in place letting the water run over your staple line. Please pat dry your wound with sterile 4x4s which can be purchased at the store. Please do not use bathroom towels that have been hanging. Only dry your wound with a sterile 4x4s. If you are wearing clothes that rub against your wound please use a dressing to keep it covered, where a dressing over your wound if you are in a car riding where there is a seatbelt that could potentially rub against her wound. If you are sitting at home with a shirt that does not touch your surgical site then you can leave it open to air. You can put triple antibiotic ointment on it if it becomes itchy but it is not necessary You may shower when you get home, remember not describe or pick at your incision site Follow Up/Referral: Keep your follow up appointment with Dr. Ivy Call [phone] for a appointment, or to change or confirm your appoinment [id number] [facility], [facility] [address] [id number] Medications: Medications have been sent to the hospital pharmacy and should be sent over so you can have them before you go home You got a stool softener, pain medication and a muscle relaxer New Medications: Cyclobenzaprine HCl (Cyclobenzaprine Hydrochlo) 10 Mg Tab 10 MG PO TID for 30 Days, #90 TAB Docusate Sodium (Docusate Sodium) 100 Mg Cap 100 MG PO BID for 14 Days, #28 CAP Hydrocodone-Acetaminophen (Hydrocodone Bitartrate/AC 10-325 mg) 1 Tab Tab 1 TAB PO Q6HP PRN for 10 Days, #40 TAB Continued Medications: Ascorbic Acid (Vitamin C Tablet) 500 Mg Tb 1 TAB PO DAILY, #30 TAB Aspirin (Aspir-81) 81 Mg Tab 81 MG PO DAILY, TAB Cholecalciferol (D3) 25 Mcg Chw 25 MCG PO DAILY, TAB.CHEW Cyanocobalamin (B12) 1,000 Mcg Tab 1000 MCG PO DAILY, TAB Echinacea Purpurea Aerial (Echinacea) 650 Mg Cap 650 MG PO DAILY, CAP Levothyroxine Sodium (Levoxyl) 100 Mcg Tab 100 MCG PO DAILY, TAB Nifedipine (Nifedipine Er) 30 Mg Tab 1 TAB PO DAILY, #90 TAB 3 Refills Sertraline Hcl (Sertraline Hcl) 100 Mg Tab 1 TAB PO DAILY, #90 TAB 1 Refill Sumatriptan Succinate (Imitrex) 50 Mg Tab 50 MG PO, TAB Scheduled Ascorbic Acid (Vitamin C Tablet), 1 TAB PO DAILY, (Reported) Aspirin (Aspir-81), 81 MG PO DAILY, (Reported) Cholecalciferol (D3), 25 MCG PO DAILY, (Reported) Cyanocobalamin (B12), 1,000 MCG PO DAILY, (Reported) Cyclobenzaprine HCl (Cyclobenzaprine Hydrochlo), 10 MG PO TID Docusate Sodium (Docusate Sodium), 100 MG PO BID Echinacea Purpurea Aerial (Echinacea), 650 MG PO DAILY, (Reported) Levothyroxine Sodium (Levoxyl), 100 MCG PO DAILY, (Reported) Nifedipine (Nifedipine Er), 1 TAB PO DAILY, (Reported) Sertraline Hcl (Sertraline Hcl), 1 TAB PO DAILY, (Reported) Scheduled PRN Hydrocodone-Acetaminophen (Hydrocodone Bitartrate/AC 10-325 mg), 1 TAB PO Q6HP PRN Miscellaneous Medications Sumatriptan Succinate (Imitrex), 50 MG PO, (Reported) 25 Discharge Statement: "Patient was advised to return to the ER or call 911 if any headaches, dizziness, shortness of breath, chest pain, abdominal pain, bleeding, fevers, or worsening of medical condition. Patient was counseled about treatment plan, medications, possible side effects, patientverbalized understanding. All questions were answered to the best of my ability. This discharge took greater then 30 minutes in planning, reviewing documentation, counseling the patient, and discussing with other team members." ASSESSMENT ASSESSMENT Assessment 1. Cervical Degenerative Disk Disease and Spinal Stenosis Causingincapacitating neck pain, radiculopathy and progressive neurologic deficit SERENE ANN NP Jan 02, 2025 18:45
[2025-01-03 01:00] VITALS: BP 155/93; PULSE 91; RESP 18; TEMP 98.7; O2SAT 90
[2025-01-03 05:00] VITALS: BP 139/86; PULSE 88; RESP 18; TEMP 98.7; O2SAT 97
[2025-01-03 08:00] VITALS: RESP 18; O2SAT 95
[2025-01-03 08:44] VITALS: BP 138/90; PULSE 92; RESP 17; TEMP 97.7; O2SAT 95
[2025-01-03] MEDS: FINASTERIDE 5 MG TAB PO SCH (09:40)
[2025-01-03] MEDS ORDERED: TAMSULOSIN HYDROCHLORIDE 0.4 MG CAP PO SCH (18:00)
== END 2025-01-03 12:05 | disposition home health service (06) | DRG 473 ==
LOC: SUR 06:15 → OVERFLOW 11:56 → TELE-CENTR 14:57 → CENTRAL 01-01 09:00 → TELE-CENTR 01-01 09:01 → CENTRAL 01-02 21:08
PROVIDERS: ADMIT Internal Medicine; ATTEND Internal Medicine
PROC: 0RB30ZZ Excision of Cervical Vertebral Disc, Open Approach (ICD-10-PCS; 2024-12-31)
PROC: 01N10ZZ Release Cervical Nerve, Open Approach (ICD-10-PCS; 2024-12-31)
PROC: 4A11X4G Monitoring of Peripheral Nervous Electrical Activity, Intraoperative, External Approach (ICD-10-PCS; 2024-12-31)
PROC: 00NW0ZZ Release Cervical Spinal Cord, Open Approach (ICD-10-PCS; 2024-12-31)
PROC: 0RG20A0 Fusion of 2 or more Cervical Vertebral Joints with Interbody Fusion Device, Anterior Approach, Anterior Column, Open Approach (ICD-10-PCS; principal; 2024-12-31 08:02)
DX: M48.02 Spinal stenosis, cervical region (principal); I10 Essential (primary) hypertension; E03.9 Hypothyroidism, unspecified; N40.1 Benign prostatic hyperplasia with lower urinary tract symptoms; R33.8 Other retention of urine; M50.31 Other cervical disc degeneration, high cervical region; R29.818 Other symptoms and signs involving the nervous system; M47.22 Other spondylosis with radiculopathy, cervical region; Z82.49 Family history of ischemic heart disease and other diseases of the circulatory system; Z80.51 Family history of malignant neoplasm of kidney; Z79.890 Hormone replacement therapy; Z79.82 Long term (current) use of aspirin; Z79.899 Other long term (current) drug therapy; G89.18 Other acute postprocedural pain
CPT/HCPCS: 36415; 72040; 76000; 80048; 80053; 81001; 84154; 84443; 85025; 85610; 85730; 86850; 86900; 86901; 87086; 97110; 97116; 97163; 97530; G0378; J0131; J1100; J1885; J1956; J2250; J2405; J2704; J7042